=== PATIENT | male | born 1950 | race Caucasian/White ===

== ENCOUNTER 2016-10-20 14:54 | Emergency (ER) | payer OTHER, MEDICARE ==
[2016-10-20] MEDS ORDERED: Aspirin Low Dose CHEW TAB* 81 MG PO ONE (15:01)
[2016-10-20] MEDS ORDERED: NS 0.9% 1000 ML* 1,000 ML IV ONE (15:01)
[2016-10-20 15:19] LABS: Hematocrit 43 % (42-52); Hemoglobin 14.2 g/dl (14.0-18.0); Mean Corpuscular HGB Conc 33 g/dl (31-36); Mean Corpuscular Hemoglobin 30 pg (27-31); Mean Corpuscular Volume 92 fL (80-94); Mean Platelet Volume 8 um3 (7.4-10.4); Red Blood Count 4.67 10^6/ul (4.0-5.4); Red Cell Distribution Width 15 % (10.5-15); White Blood Count 5.9 10^3/ul (3.5-10.8)
--- NOTE | 2016-10-20 15:26 | RAD ---
HISTORY: Chest pain, shortness of breath, CHF COMPARISONS: April 14, 2016 VIEWS:1: Single frontal portable view of the chest at 3:09 PM FINDINGS: LINES AND TUBES: None. CARDIOMEDIASTINAL SILHOUETTE: The cardiomediastinal silhouette is normal for portable technique. PLEURA: The costophrenic angles are sharp. No pleural abnormalities are noted. LUNG PARENCHYMA: The lungs are clear. ABDOMEN: The upper abdomen is clear. There is no subphrenic gas. BONES AND SOFT TISSUES: The patient is status post median sternotomy. IMPRESSION: NO ACTIVE CARDIOPULMONARY DISEASE.
[2016-10-20 15:35] LABS: Albumin 3.9 g/dL (3.2-5.2); Calcium 9.1 mg/dL (8.6-10.3); EGFR African American 110.3 (>60); EGFR Non-African American 85.8 (>60); Globulin 2.6 g/dL (2-4); Potassium 3.8 mmol/L (3.5-5.0); Total Bilirubin 0.6 mg/dL (0.2-1.0); Total Protein 6.5 g/dL (6.4-8.9)
[2016-10-20] MEDS ORDERED: Midazolam* 1 MG/ML 5 ML VIAL (5 MG) ONE (15:52)
[2016-10-20] MEDS ORDERED: fentaNYL* 50 MCG/ML 2 ML VIAL (100 MCG VIAL) ONE ×2 (15:52→16:35)
[2016-10-20] MEDS ORDERED: Lidocaine 1% INJ* 10 MG/ML 30 ML SDV ONE (15:53)
[2016-10-20] MEDS ORDERED: Iohexol 350 (CONTRAST) 200 ML MDV IV ONE (15:53)
[2016-10-20] MEDS ORDERED: Heparin 2 UNITS/ML IVPREMIX* 2,000 ML IV ONE (15:53)
--- NOTE | 2016-10-20 20:27 | ED ---
Ganesh Ellis Alok, scribed for Reece Heath MD on 10/20/16 at 1509 . HPI Chest Pain - HPI Summary HPI Summary: 66M presents to the ED sent here from his [facility] for a sudden onset of CP accompanied by SOB during his stress test at 1300. Pt also notes diaphoresis and nausea. Pt states his SOB has improved somewhat since his stress test but still feels a mild chest discomfort. PMHx includes cardiac stent. Additional PMHx includes STEMI 17 years ago. Pt is a former tobacco smoker. - History of Current Complaint Hx Obtained From: Patient Onset/Duration: Started Hours Ago, Atraumatic, Still Present Time of Onset: 13:00 Timing: Constant Initial Severity: Moderate Current Severity: Moderate Aggravating Factor(s): Exertion Alleviating Factor(s): Nothing Associated Signs and Symptoms: Positive: Chest Pain, Dizziness, Shortness of Breath, Diaphoresis, Nausea - Allergy/Home Medications Allergies/Adverse Reactions: Allergies Allergy/AdvReac Type Severity Reaction Status Date / Time Penicillins Allergy Severe Unknown Verified 01/09/16 12:18 Reaction Details Sulfa Drugs Allergy Severe Unknown Verified 01/09/16 12:18 Reaction Details Atorvastatin Allergy MUSCLE Verified 01/09/16 12:18 REACTION - SEE COMMENT PMH/Surg Hx/FS Hx/Imm Hx Endocrine/Hematology History: Reports: Hx Diabetes - ON ORAL MEDICATION AND INSULIN Denies: Hx Thyroid Disease Cardiovascular History: Reports: Hx Angina - AT TIMES, Hx Coronary Artery Disease - HISTORY OF BYPASS-1998 DONE AFTER 2 ANGIOGRAMS, Hx Hypercholesterolemia, Hx Hypertension - ON MEDICATION FOR, Hx Valvular Heart Disease - AORTIC VALVE DISORDER, ISCHEMIC CARDIOMYOPATHY Denies: Hx Congestive Heart Failure, Hx Pacemaker/ICD, Hx Peripheral Vascular Disease Respiratory History: Reports: Hx Asthma - ROUTINE AND PRN INHALERS, Hx Chronic Bronchitis, Hx Seasonal Allergies, Hx Sleep Apnea - cpap Denies: Hx Chronic Obstructive Pulmonary Disease (COPD) GI History: Reports: Hx Diverticulosis, Hx Gastroesophageal Reflux Disease - ON MEDICATION FOR, Hx Irritable Bowel, Hx Ulcer - AROUND AGE 19 Musculoskeletal History: Reports: Hx Arthritis - tennis elbow Denies: Hx Osteoporosis Sensory History: Reports: Hx Contacts or Glasses - GLASSES Denies: Hx Cataracts, Hx Glaucoma, Hx Deafness, Hx Hearing Aid Opthamlomology History: Reports: Hx Contacts or Glasses - GLASSES Denies: Hx Cataracts, Hx Glaucoma Neurological History: Reports: Hx Migraine - CONTROL WITH MED, Hx Nerve Disease - DIABETIC NEUROPATHY, POST PUMP SYNDROME, Other Neuro Impairments/Disorders - DIABETIC NEUROPATHY Denies: Hx Headaches Psychiatric History: Reports: Hx Anxiety - ON MEDICATION FOR, Hx Depression, Hx Substance Abuse - Surgical History Surgery Procedure, Year, and Place: 1995-discectomy AND FUSION. TRIPLE BYPASS- 1998. tonsils REMOVED A CHILD. hemorrhoids-20 + YEARS AGO Hx Anesthesia Reactions: No Infectious Disease History: Reports: Hx Shingles - 2007 Denies: Hx Clostridium Difficile, Hx Hepatitis, Hx Human Immunodeficiency Virus (HIV), Hx of Known/Suspected MRSA, Hx Tuberculosis, Hx Known/Suspected VRE , Hx Known/Suspected VRSA, History Other Infectious Disease, Traveled Outside the [place] in Last 30 Days - Family History Known Family History: Positive: Cardiac Disease - Social History Lives: With Family Alcohol Use: Weekly Alcohol Amount: WEEKENDS Hx Substance Use: No Substance Use Type: Reports: None Hx Tobacco Use: Yes Smoking Status (MU): Former Smoker Type: Cigarettes Amount Used/How Often: 1/2- 2 PPD X 33 YEARS Length of Time of Smoking/Using Tobacco: 32 YEARS Have You Smoked in the Last Year: No Review of Systems Positive: Skin Diaphoresis Positive: Chest Pain Positive: Shortness Of Breath Positive: Nausea Neurological: Other - Dizziness All Other Systems Reviewed And Are Negative: Yes Physical Exam - Summary Physical Exam Summary: The patient is well-nourished in mild pain distress. The skin is warm and slightly diaphoretic and skin color reflects adequate perfusion. HEENT: The head is normocephalic and atraumatic. The pupils are equal and reactive. The conjunctivae are clear and without drainage. Nares are patent and without drainage. Mouth reveals moist mucous membranes and the throat is without erythema and exudate. The external ears are intact. The ear canals are patent and without drainage. The tympanic membranes are intact. Neck is supple with full range of motion and non-tender. There are no carotid bruits. There is no neck vein distension. Respiratory: Chest is non-tender. Lungs are clear to auscultation and breath sounds are symmetrical and equal. Cardiovascular: Hear is regular rate and rhythm. There is no murmur or rub auscultated. There is a pitting edema pretibial area of the lower extremities and pulses are symmetrical and equal. Abdomen: The abdomen is obese, soft, and non-tender. There are normal bowel sounds heard in all four quadrants and there is no organomegaly palpated. Musculoskeletal: There is no back pain noted. Extremities are non-tender with full range of motion. There is good capillary refill. Pitting edema pretibial area of the lower extremities. Neurological: Patient is alert and oriented to person, place and time. The patient has symmetrical motor strength in all four extremities. Cranial nerves are grossly intact. Deep tendon reflexes are symmetrical and equal in all four extremities. Psychiatric: The patient has an appropriate affect and does not exhibit any anxiety or depression. Triage Information Reviewed: Yes Vital Signs On Initial Exam: Initial Vital Signs Pulse 89 10/20/16 15:02 Resp 11 10/20/16 15:02 Pulse Ox 96 10/20/16 15:02 Vital Signs Reviewed: Yes Diagnostics - Vital Signs Vital Signs Pulse Resp Pulse Ox 10/20/16 15:24 94 10/20/16 15:02 89 11 96 - Laboratory Lab Results: Lab Results 10/20/16 10/20/16 10/20/16 Range/Units 15:10 15:10 15:10 WBC 5.9 (3.5-10.8) 10^3/ul RBC 4.67 (4.0-5.4) 10^6/ul Hgb 14.2 (14.0-18.0) g/dl Hct 43 (42-52) % MCV 92 (80-94) fL MCH 30 (27-31) pg MCHC 33 (31-36) g/dl RDW 15 (10.5-15) % Plt Count 240 (150-450) 10^3/ul MPV 8 (7.4-10.4) um3 Neut % (Auto) 64.4 (38-83) % Lymph % (Auto) 20.4 L (25-47) % [place] % (Auto) 11.0 H (1-9) % Eos % (Auto) 3.4 (0-6) % Baso % (Auto) 0.8 (0-2) % Absolute Neuts (auto) 3.8 (1.5-7.7) 10^3/ul Absolute Lymphs (auto) 1.2 (1.0-4.8) 10^3/ul Absolute Monos (auto) 0.7 (0-0.8) 10^3/ul Absolute Eos (auto) 0.2 (0-0.6) 10^3/ul Absolute Basos (auto) 0 (0-0.2) 10^3/ul Absolute Nucleated RBC 0.01 10^3/ul Nucleated RBC % 0.1 Sodium 139 (133-145) mmol/L Potassium 3.8 (3.5-5.0) mmol/L Chloride 106 (101-111) mmol/L Carbon Dioxide 25 (22-32) mmol/L Anion Gap 8 (2-11) mmol/L BUN 16 (6-24) mg/dL Creatinine 0.89 (0.67-1.17) mg/dL Est GFR ( Amer) 110.3 (>60) Est GFR (Non-Af Amer) 85.8 (>60) BUN/Creatinine Ratio 18.0 (8-20) Glucose 85 (70-100) mg/dL Lactic Acid 2.7 H* (0.5-2.0) mmol/L Calcium 9.1 (8.6-10.3) mg/dL Total Bilirubin 0.60 (0.2-1.0) mg/dL AST 22 (13-39) U/L ALT 19 (7-52) U/L Alkaline Phosphatase 61 (34-104) U/L Total Creatine Kinase 96 (10-223) U/L CK-MB (CK-2) 3.0 (0.6-6.3) ng/mL Troponin I 0.00 (<0.04) ng/mL B-Natriuretic Peptide ( - 100) pg/mL Total Protein 6.5 (6.4-8.9) g/dL Albumin 3.9 (3.2-5.2) g/dL Globulin 2.6 (2-4) g/dL Albumin/Globulin Ratio 1.5 (1-3) 10/20/16 Range/Units 15:10 WBC (3.5-10.8) 10^3/ul RBC (4.0-5.4) 10^6/ul Hgb (14.0-18.0) g/dl Hct (42-52) % MCV (80-94) fL MCH (27-31) pg MCHC (31-36) g/dl RDW (10.5-15) % Plt Count (150-450) 10^3/ul MPV (7.4-10.4) um3 Neut % (Auto) (38-83) % Lymph % (Auto) (25-47) % [place] % (Auto) (1-9) % Eos % (Auto) (0-6) % Baso % (Auto) (0-2) % Absolute Neuts (auto) (1.5-7.7) 10^3/ul Absolute Lymphs (auto) (1.0-4.8) 10^3/ul Absolute Monos (auto) (0-0.8) 10^3/ul Absolute Eos (auto) (0-0.6) 10^3/ul Absolute Basos (auto) (0-0.2) 10^3/ul Absolute Nucleated RBC 10^3/ul Nucleated RBC % Sodium (133-145) mmol/L Potassium (3.5-5.0) mmol/L Chloride (101-111) mmol/L Carbon Dioxide (22-32) mmol/L Anion Gap (2-11) mmol/L BUN (6-24) mg/dL Creatinine (0.67-1.17) mg/dL Est GFR ( Amer) (>60) Est GFR (Non-Af Amer) (>60) BUN/Creatinine Ratio (8-20) Glucose (70-100) mg/dL Lactic Acid (0.5-2.0) mmol/L Calcium (8.6-10.3) mg/dL Total Bilirubin (0.2-1.0) mg/dL AST (13-39) U/L ALT (7-52) U/L Alkaline Phosphatase (34-104) U/L Total Creatine Kinase (10-223) U/L CK-MB (CK-2) (0.6-6.3) ng/mL Troponin I (<0.04) ng/mL B-Natriuretic Peptide 26 ( - 100) pg/mL Total Protein (6.4-8.9) g/dL Albumin (3.2-5.2) g/dL Globulin (2-4) g/dL Albumin/Globulin Ratio (1-3) Result Diagrams: 10/20/16 15:10 10/20/16 15:10 Lab Statement: Any lab studies that have been ordered have been reviewed, and results considered in the medical decision making process. - Radiology CXR Xray Interpretation: Positive (See Comments) - IMPRESSION: NO ACTIVE CARDIOPULMONARY DISEASE. Radiology Interpretation Completed By: Radiologist - EKG 1455 Cardiac Rate: NL - 90 bpm EKG Rhythm: Sinus Rhythm EKG Interpretation: No ST depressions Chest Pain Course/Dx - Course Course Of Treatment: pt with known CAD with CABS and recent stent placement. pt developed chest pain while having a stress test with ST depression. his prehospital EKG x2 and ED EKG revealed no STEMI. Dr. Varghese was notified and he took pt to cardiac labor relations teacher for definitve care. - Chest Pain Differential Diagnosis/HQI/PQRI: Acute NC, ACS, CHF - Diagnoses Provider Diagnoses: Acute coronary syndrome - Provider Notifications Discussed Care Of Patient With: Anup Varghese - Will come see patient Time Discussed With Above Provider: 15:03 Discharge - Discharge Plan Condition: Stable Disposition: ADMITTED TO [facility] Referrals: Cecy Javier MD [Primary Care Provider] - The documentation as recorded by the Ganesh pires Alok accurately reflects the service I personally performed and the decisions made by , Reece Heath MD.
--- NOTE | 2016-10-21 05:56 | HP ---
CC: Evonne Mccracken MD HISTORY AND PHYSICAL: DATE OF ADMISSION: 10/20/16 PRIMARY CARE PHYSICIAN: Cecy Javier MD. SLASHER RUNNER: Evonne Mccracken MD HISTORY OF PRESENT ILLNESS: A 66-year-old male with remote bypass transferred by ambulance from ___ ___ office after stress echo produced fairly severe angina with an inferoapical wall motion abnormal ity. His symptoms have gradually improved, currently in the ER, he still has very minimal residual. He had bypass grafting in [place] in 1998 with a vein graft to the right, vein graft to a diagonal, and a DUNNE to the LAD. He only had neurological deficit post bypass. In March last year, he had a non-ST elevation infarct, cath at that time showed the LAD to be occluded with the patent DUNNE, v ein graft to the diagonal was occluded, the diagonal itself had proximal 40 to 50% stenosis. The na tive RCA was occluded with a patent vein graft, which was; however, diffusely and severely diseased with up to 90% stenosis. The circumflex proper was small, his PDA and posterolateral circulation we re graft dependent. He had inferior wall hypokinesis, EF was 40%. He was transferred to [place] where he had somewhat high risk vein graft intervention with placement of a distal filter, aspiratio n thrombectomy followed by implantation of four 4-mm stents using a 4 x 20, 4 x 38, 4 x 32, 4 x 12 S ynergy. They were all post dilated to 16 atmospheres. He initially then felt well, but at around F ebruary he started to have exertional dyspnea with chest tightness, which has gradually progressed. Because of the exertional dyspnea and chest heaviness, he had a stress echo today, which showed inf eroapical ischemia with prolonged residual angina. He recently had an elevated CPK and for that reason his Crestor was stopped. He has not had any ble eding on aspirin and Effient. His hemoglobin A1c has improved. PAST MEDICAL HISTORY: Diabetes type 2, obesity, hypertension, hyperlipidemia history of head trauma with apparently also neurologic deficit. CARDIAC MEDICATIONS: Include, 1. Toprol-XL 25 mg, 50 mg in the morning and 1 in the evening. 2. Norvasc 5 mg b.i.d. 3. Cozaar 25 mg daily. 4. Actos. 5. Insulin. 6. Effient 10 mg daily. 7. Aspirin 81 mg daily. ALLERGIES: 1. PENICILLIN. 2. SULFA. 3. LIPITOR. 4. Apparently CRESTOR. FAMILY HISTORY: Noncontributory. SOCIAL HISTORY: Social history he is . REVIEW OF SYSTEMS: FASHION MODEL: No history of CVA. GI: No peptic ulcer disease or bleeding. Circulatory : No claudication. Remainder all negative. Prehospital indications; list is extensive. PHYSICAL EXAMINATION GENERAL: He has very mild residual central chest pressure. VITAL SIGNS: ER heart rate was 90. HEENT: Unremarkable. NECK: JVP is not elevated. Carotid upstrokes are normal. LUNGS: LUNGS: Clear to percussion and auscultation. CARDIAC EXAM: He has a healed sternotomy scar, I cannot feel the RV or apex. He has normal S1 and S2. He has a typical calcific murmur, which peaks mid systole, diminished with Valsalva. I hear no gallop or diastolic murmur. ABDOMEN: Obese, nontender without bruit. Radial and femoral pulses are palpable. EXTREMITIES: Posterior tibialis are palpable, he has 1+ pitting edema bilaterally. LABORATORY DATA: CBC today is normal, chemistry panel today includes blood sugar of 85, lactate of 2.7, normal creatinine of 0.89, and potassium of 3.8. Troponin is 0. BNP is 26. His EKG today sh ows nonspecific ST changes inferolaterally, unchanged from 04/14/16. Chest x-ray normal heart size in a portable film, with perhaps slight vascular prominence, especially in the right upper lobe. Th ere is no previous chest x-ray for comparison. IMPRESSION: 1. Unstable angina. He has prolonged chest pain after stress echo with near complete resolution, b ut still residual mild discomfort. He likely has in-stent restenosis having had four 4-mm stents pl aced in the vein graft to the RCA in March. He has been symptomatic since around May. I saab ve recommended coronary angiogram and likely repeat revascularization with somewhat increased risk b ecause of concern of distal embolization. 2. Left ventricular systolic dysfunction. His ejection fraction in March was 40%. He is only C ozaar, low dose. There is room to increase afterload reduction. Last echo in March showed aortic valve sclerosis without significant stenosis. Echo in April of this year showed aortic valve area of 1.1 to 1.2. EF 55 to 60. 3. Dyslipidemia with apparent intolerance of statins. 4. Diabetes. 5. Obesity. 6. Hypertension. 7. Cognitive impairment post bypass and apparently in part post closed head trauma. [id number]/[facility] #: [id number]
== END 2016-10-20 16:41 | disposition short-term general hospital (02) ==
LOC: ED 14:54
DX: R07.9 Chest pain, unspecified (principal); I24.9 Acute ischemic heart disease, unspecified; R42 Dizziness and giddiness; R06.02 Shortness of breath; R11.0 Nausea; Z87.891 Personal history of nicotine dependence
CPT/HCPCS: 36415; 71010; 80053; 82550; 82553; 83605; 83880; 84484; 85025; 93005; 99284; J1644; J2001; J2250; J3010

== ENCOUNTER 2016-10-20 17:26 | Observation (INO) | payer OTHER, MEDICARE ==
[2016-10-20] MEDS ORDERED: NS 0.9% 1000 ML* 1,000 ML IV SCH (18:15)
[2016-10-21] MEDS ORDERED: amLODIPine TAB* 5 MG PO SCH ×2 (01:00→09:00)
[2016-10-21] MEDS ORDERED: Metoprolol Succinate XL TAB* 25 MG PO SCH (01:00)
[2016-10-21] MEDS ORDERED: Cholecalciferol TAB* 1000 UNITS PO SCH (01:00)
[2016-10-21] MEDS ORDERED: Pioglitazone TAB* 15 MG PO SCH ×2 (01:00→09:00)
[2016-10-21] MEDS ORDERED: Insulin GLARGINE(*) 1 UNITS UNIT SUBCUT SCH (01:00)
[2016-10-21] MEDS: Magnesium Oxide TAB* 400 MG PO SCH ×2 (01:30→08:25)
[2016-10-21] MEDS: metFORMIN* 1,000 MG TAB PO SCH ×2 (01:31→08:25)
[2016-10-21] MEDS: Pregabalin CAP(*) 100 MG PO SCH ×2 (01:32→08:25)
[2016-10-21] MEDS: Mometasone/Formoter 200/5 MDI INH SCH ×2 (04:31→09:00)
[2016-10-21 08:21] VITALS: BP 127/68
[2016-10-21] MEDS ORDERED: Nitroglycerin TAB 0.4 MG* 0.4 MG TAB SL PRN (08:54)
[2016-10-21] MEDS ORDERED: Metoprolol Succinate XL TAB* 50 MG PO SCH (09:00)
[2016-10-21] MEDS ORDERED: CMC:Prasugrel (NF) 10 MG PO SCH (09:00)
[2016-10-21] MEDS ORDERED: Repaglinide TAB* 1 MG PO SCH (09:00)
[2016-10-21] MEDS ORDERED: Furosemide TAB* 20 MG PO SCH (09:00)
[2016-10-21] MEDS ORDERED: Tiotropium CAP.INH* CAP.INH/18 MCG INH SCH (09:00)
[2016-10-21] MEDS ORDERED: Lisinopril TAB* 10 MG PO SCH (09:00)
[2016-10-21] MEDS ORDERED: Montelukast Sodium TAB* 10 MG PO SCH (09:00)
[2016-10-21] MEDS ORDERED: Pregabalin CAP(*) 100 MG PO SCH (09:00)
[2016-10-21] MEDS ORDERED: Aspirin EC Low Dose* 81 MG TAB.EC PO SCH (09:00)
[2016-10-21 09:28] LABS: BUN/Creatinine Ratio 12.6 (8-20); EGFR African American 113.3 (>60); EGFR Non-African American 88.1 (>60)
[2016-10-21] MEDS ORDERED: Spiriva Inhaler DEVICE* 1 EACH DEVICE INH ONE (10:00)
--- NOTE | 2016-10-22 12:00 | DS ---
CC: Cecy Javier MD; Evonne Mccracken MD.* DISCHARGE SUMMARY: DATE OF ADMISSION: 10/20/16 DATE OF DISCHARGE: 10/21/16 PRIMARY CARE PHYSICIAN: Cecy Javier MD. BABY SITTER: Evonne Mccracken MD. DISCHARGE DIAGNOSES: 1. Non cardiac chest pain. 2. Diastolic dysfunction with chronic diastolic heart failure. 3. Obesity. 4. Diabetes type 2. 5. Hypertension. 6. Dyslipidemia. CONDITION ON DISCHARGE: Stable. PROCEDURE: Cardiac cath 10/20/16. DISCHARGE MEDICATIONS: Unchanged: 1. Norvasc 5 mg b.i.d. 2. Aspirin 81 mg daily. 3. Vitamin D 1000 units daily. 4. Lantus 40 mg subcu h.s. 5. Magnesium oxide 400 b.i.d. 6. Glucophage 1 g b.i.d., on hold for 48 hours. 7. Toprol XL 25 mg at bedtime and 50 mg q. a.m. 8. Dulera inhaler as before. 9. Singulair 10 mg q. a.m. 10. Nitroglycerin 0.4 mg sublingual p.r.n. 11. Actos 45 mg daily. 12. Effient 10 mg daily. 13. Lyrica 300 mg b.i.d. 14. Prandin as before. 15. Spiriva as before. To discontinue Cozaar. New Medications: 1. Lasix 20 mg q.a.m. 2. Lisinopril 10 mg q.a.m. FOLLOWUP: Followup to call Dr. Mccracken's office next week for followup appointment and with Dr. Javier as before. LABORATORY DATA: Repeat BMP post cath, stable with creatinine of 0.87, glucose 133. Potassium normal at 4. HOSPITAL COURSE: He was referred for admission for diagnosis of progressive exertional dyspnea and stress echo accompanied by severe hypertension with severe dyspnea as well as precordial chest discomfort which was prolonged, but without EKG changes. He has had remote bypass, had four 4 mm stents implanted in the vein graft to the RCA last March. At that time, DUNNE was open to LAD. Vein graft to the first diagonal was occluded, but the diagonal itself had no significant stenosis. The RCA was occluded and graft dependent. He had inferior hyperkinesis at that time. Repeat echo in April showed normalization of EF and mild aortic stenosis. He underwent catheterization via the right femoral approach without complications, with the findings of widely patent vein graft to the RCA, and essentially unchanged the anatomy of the left circulation with a patent DUNNE to LAD, insignificant stenosis of the first diagonal. LV gram showed apical hypo to akinesis, but otherwise markedly improved inferior wall motion with normal EF of 55%. The right groin was closed with Angio-Seal. He has been discharged this morning after rearrangement of his medical management, which consisted of discontinuation of Cozaar, institution of lisinopril with the intent of titrating upward as needed to control his effort related hypertension and institution of Lasix 20 daily to reduce preload to help treat his diastolic dysfunction. 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 On the day of discharge, the vitals are stable, he is asymptomatic, the groin site is uncomplicated. [id number]/[facility] #: [id number] COLIN
--- NOTE | 2016-11-01 10:26 | CATH ---
CC: Dr. Javier; Dr. Mccracken * CATH REPORT: DATE OF PROCEDURE: 10/20/16 - ROOM #[id number] PRIMARY CARE PHYSICIAN: Dr. Javier. SENIOR SEARCH MARKETING ANALYST: Dr. Mccracken. PROCEDURE: Right common femoral artery access, bilateral selective coronary cine angiography, DUNNE angiography, vein graft angiography, left heart catheterization, left ventriculography. HISTORY: A 66-year-old male with remote bypass grafting in 1998. Cath, , revealed the LAD to be occluded with an open DUNNE, mild disease of the first diagonal with an occluded vein graft, occlusion of the [place] right with extensive degenerative disease of the vein graft. The RCA was graft dependent. EF was 40% with inferior wall hypokinesis. He received 4 drug-eluting stents at [facility] using a 4 x 20, 4 x 38, 4 x 32 and 4 x 12. He was referred for catheterization because of stress echo for dyspnea on exertion which was accompanied by hypertension, and reproduction of chest discomfort. He was suspected of having in-stent stenosis of the vein graft to the RCA stents. PROCEDURE ACCESS: Right common femoral artery. SHEATH: A 6F slender. MEDICATIONS: 1. Subcu lidocaine. 2. IV Versed. 3. IV fentanyl. DIAGNOSTIC CATHETERS: A 6F L4, MP A1, 6F SHANTE, 6F pigtail. Angio-Seal was used for hemostasis. HEMODYNAMICS: Initial BP 146/76, LV 128/9, no aortic valve gradient on pullback. ANGIOGRAPHY: Right common femoral: Sheath entry is in segment 2, there is no stenosis. DUNNE: The SHANTE is moderate, inserts into the mid LAD. The LAD is graft dependent. It fills towards the end of the apex, fills back to its retrograde occlusion adjacent to the septal automation and controls manager. The septal has an 80 to 90% ostial stenosis. There is a proximal small diagonal branch, which fills off the proximal LAD. The LAD and diagonal are graft dependent. RCA: The RCA is occluded at the origin. Left Main: The left main is short, has no significant stenosis. LAD: The LAD is moderate, has a very proximal first diagonal which has a 30% stenosis, has mid tenting at the side of presumably the old vein graft which is known to be occluded. The LAD beyond the diagonal is occluded. It fills from the DUNNE. Circumflex: The circumflex is small, not dominant, ends with a small posterolateral. Vein graft RCA: The graft is large, stented essentially from one end to the other, it inserts at the acute margin. The distal RCA with the PDA and the large posterolateral fill. There is no insertion stenosis. The graft has no significant stenosis. LV gram: Wall motion essentially normal. EF 55%. CONCLUSION: 1. Two-vessel disease with occlusion of the RCA and mid LAD, patent DUNNE to the LAD, patent vein graft to the RCA. He is revascularized. 2. Normal LV systolic function with probably diastolic dysfunction. Based on further history, some of his chest pain is probably due to chronic chest pain syndrome post bypass with pain from rapid breathing with exercise. He may have a component of diastolic dysfunction as well. 3. Successful Angio-Seal right common femoral artery. [id number]/[facility] #: [id number] MTDD
== END 2016-10-21 12:45 | disposition home or self-care (01) ==
LOC: MEDTELE 17:40
PROVIDERS: ADMIT Internal Medicine Cardiovascular Disease; ATTEND Internal Medicine Cardiovascular Disease
DX: I25.10 Atherosclerotic heart disease of native coronary artery without angina pectoris (principal); I25.2 Old myocardial infarction; Z79.82 Long term (current) use of aspirin; Z88.0 Allergy status to penicillin; Z88.2 Allergy status to sulfonamides; E11.9 Type 2 diabetes mellitus without complications; E78.5 Hyperlipidemia, unspecified; Z95.1 Presence of aortocoronary bypass graft; I10 Essential (primary) hypertension
CPT/HCPCS: 36415; 80048; 93459; 94640; 94760; A9270-GY; C1760; C1887; G0378

== ENCOUNTER 2017-05-22 12:58 | Day surgery (SDC) | payer OTHER, MEDICARE ==
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
[~2017-05-22 12:58] MED LIST: Buffered Lidocaine 0.9% SYRIN* 5 ML/SYR SYRINGE INTRADERM ONE; Metoclopramide TAB* 10 MG PO ONE
[2017-05-22] MEDS ORDERED: Metoclopramide TAB* 10 MG ONE (13:52)
[2017-05-22] MEDS ORDERED: Clindamycin 900 MG IVPREMIX(* 900 MG/50 ML SDV IV ONE (13:52)
[2017-05-22] MEDS ORDERED: Lidocaine 1% MPF wEPI 200,000* 30 ML SDV ONE (14:57)
[2017-05-22] MEDS ORDERED: Bupivacaine 0.5% SDV PF* 10-30ML VIAL ONE (14:58)
[2017-05-22] MEDS ORDERED: fentaNYL* 50 MCG/ML 2 ML VIAL (100 MCG VIAL) ONE (15:07)
[2017-05-22] MEDS ORDERED: Midazolam* 1 MG/ML 2 ML VIAL (2 MG) ONE ×2 (15:07→15:21)
[2017-05-22] MEDS ORDERED: Propofol* 10 MG/ML 20 ML BTL IV PUSH ONE (15:25)
[2017-05-22] MEDS ORDERED: Naloxone* 0.4 MG/ML 1 ML VIAL IV PRN (15:35)
[2017-05-22] MEDS ORDERED: oxyCODONE/Acetamin 5/325 MG* TAB PO PRN (16:12)
[2017-05-22] MEDS ORDERED: oxyCODONE/Acetamin 5/325 MG* TAB ONE (16:20)
[2017-05-22 16:52] VITALS: BP 129/78
--- NOTE | 2017-05-23 04:03 | OP ---
CC: Cecy Javier MD * DATE OF OPERATION: 05/22/17 - [facility] DATE OF : 52 SURGEON: Abhinav Wilkerson MD MECHANIC CHIEF: NICHOLAS Gray ANESTHESIOLOGIST: Dr. Ba. ANESTHESIA: Local MAC. PRE-OP DIAGNOSIS: Umbilical hernia. POST-OP DIAGNOSIS: Umbilical hernia. OPERATIVE PROCEDURE: Umbilical hernia repair with mesh. ESTIMATED BLOOD LOSS: Minimal blood loss. SPECIMEN: None. COUNTS: Lap pad count and instrument count correct at the end of the procedure. INDICATION: Mr. Worthy is a 66-year-old gentleman who I saw in my office last month with complaints of abdominal pain and back pain. At that time, he was diagnosed with an inguinal hernia as well as an umbilical hernia. We had plans for performing a laparoscopic inguinal hernia repair with mesh along with an umbilical hernia repair with likely mesh. However, on our preoperative visit, the patient did discuss that his upper abdominal pain, flank pain and back pain were worsening and he was concerned about the hernia in being a major player. It was at this time, I discussed with the patient that I felt this back pain was likely a different entity although it could have been secondary to the umbilical hernia, but much less likely secondary to the inguinal hernia. Given the patient's comorbidities, decision was made to perform more urgent umbilical hernia repair for this patient to see if this would help with his pain. The patient had stated that on multiple occasions, he was ready to go to the emergency room because of the pain. I outlined the details of the procedure going over the risks, benefits and alternatives of umbilical hernia repair with mesh and we talked about the inguinal hernia and its need for repair in an expected fashion without doing both of these at the same time given the patient' s significant discomfort. DESCRIPTION OF PROCEDURE: On the day of surgery, the patient was identified in the preoperative area, he was marked, brought to the OR, placed on the operating table in the supine position. Preoperative antibiotics were given. Sequential devices were placed on bilateral lower extremities. General sedation was given. The patient's abdomen was prepped and draped in a standard surgical fashion after the hair was clipped. A time-out was performed. An infra-umbilical incision was made. This was deepened down to the anterior fascia inferiorly. The umbilical skin was isolated on a Jon drain. After dissection, we then sharply dissected the umbilical skin off of the site identifying the hernia. The edges were cleared off and we identified a 2.5 cm hernia. With blunt and sharp dissection, we were able to form a pocket in the posterior fascia that would accomplish a 6.4 cm Ventralex mesh. We placed this in and sutured the tails of the mesh inferiorly and superiorly along the good fascia. We sutured the edges as well picking up the quadrants of the mesh and then reapproximated loosely the mid portion of the hernia defect. The wound was then irrigated. Hemostasis was excellent. We tacked the umbilical skin down with a 2-0 Vicryl suture and then closed the incision with 3-0 Vicryl subcuticular sutures followed by 4-0 Monocryl subcutaneous running suture. Steri-Strips and sterile dressing were applied. The patient tolerated the procedure well, was awoken up in the OR, and transferred to PACU in stable condition. [id number]/[facility] #: [id number] COLIN
== END 2017-05-22 16:55 | disposition home or self-care (01) ==
LOC: OR 12:58
PROVIDERS: ATTEND Surgery
DX: K42.9 Umbilical hernia without obstruction or gangrene (principal); K40.20 Bilateral inguinal hernia, without obstruction or gangrene, not specified as recurrent; Z87.891 Personal history of nicotine dependence; E11.9 Type 2 diabetes mellitus without complications; Z79.84 Long term (current) use of oral hypoglycemic drugs; M54.9 Dorsalgia, unspecified; I25.10 Atherosclerotic heart disease of native coronary artery without angina pectoris; Z95.1 Presence of aortocoronary bypass graft; I35.0 Nonrheumatic aortic (valve) stenosis; I10 Essential (primary) hypertension; E78.5 Hyperlipidemia, unspecified; I25.5 Ischemic cardiomyopathy; J45.909 Unspecified asthma, uncomplicated; F41.9 Anxiety disorder, unspecified; G47.30 Sleep apnea, unspecified; G62.9 Polyneuropathy, unspecified
CPT/HCPCS: A9270-GY; C1781; J2001; J2250; J2704; J3010

== ENCOUNTER 2017-09-07 16:00 | Emergency (ER) | payer OTHER, MEDICARE ==
--- OUTSIDE RECORDS SUMMARY | 2017-09-07 16:21 | XMS REPORT ---
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 Ratio 1.6 1-3 34 Total Bilirubin 0.90 mg/dL 0.2-1.0 34 Alkaline Phosphatase 64 U/L 34-104 34 Alt 19 U/L 7-52 34 Ast 16 U/L 13-39 34 Egfr Non- 75.2 >60 34 Egfr 96.7 >60 34, 35 Lipid Profile (Trig/Chol/HDL) 03/21/2016 Triglycerides 223 mg/dL 34, 36 Cholesterol 134 mg/dL 34, 37 HDL Cholesterol 35.8 mg/dL 34, 38 LDL Cholesterol 54 mg/dL 34, 39 Liver Function Panel 03/21/2016 Direct Bilirubin 0.10 mg/dL 0.03-0.18 34 Indirect Bilirubin 0.8 mg/dL 0.3-1.0 34 Urine Microalbumin Random 03/21/2016 Urine Creatinine 115.59 mg/dL 34 Ur Microalbumin (mg/L) 57.0 mg/L 34 Urine Microalbumin/Creatinine 49.3 ug/mg High <31 34 Laboratory test finding 01/07/2016 Point of Care Glucose 186 mg/dL High 74 -106 40 Laboratory test finding 10/29/2015 Point of Care Glucose 212 mg/dL High 74 -106 41 Laboratory test finding 10/27/2015 Ast (Sgot) 20 U/L 13-39 Basic Metabolic Panel 10/27/2015 Sodium 139 mmol/L 133-145 Potassium 3.7 mmol/L 3.5-5.0 Chloride 101 mmol/L 101-111 Co2 Carbon Dioxide 31 mmol/L 22-32 Anion Gap 7 mmol/L 2-11 Glucose 130 mg/dL High 70-100 Blood Urea Nitrogen 12 mg/dL 6-24 Creatinine 0.93 mg/dL 0.67-1.17 BUN/Creatinine Ratio 12.9 8-20 Calcium 8.8 mg/dL 8.6-10.3 Egfr Non- 81.8 >60 Egfr 105.2 >60 42 Lipid Profile (Trig/Chol/HDL) 10/27/2015 Triglycerides 145 mg/dL 43 Cholesterol 149 mg/dL 44 HDL Cholesterol 40.6 mg/dL 45 LDL Cholesterol 79 mg/dL 46 Testosterone Profile 06/08/2015 Testosterone 363 ng/dL 240-950 47 Free Testosterone ng/dl 10.5 ng/dL 3.67-13.9 48 Bioavailable Testosterone 123 ng/dL 40-168 49 Laboratory test finding 05/12/2014 TSH (Thyroid Stimulating 2.76 IU/mL 0.34-5.60 Horm) Testosterone 349.36 ng/dL 240-950 Liver Function Panel 05/12/2014 Direct Bilirubin 0.10 mg/dL 0.03-0.18 Indirect Bilirubin 0.5 mg/dL 0.3-1.0 Lipid Profile (Trig/Chol/HDL) 05/12/2014 Triglycerides 136 mg/dL 50 Cholesterol 125 mg/dL 51 HDL Cholesterol 40.1 mg/dL 52 LDL Cholesterol 58 mg/dL 53 CBC Auto Diff 05/12/2014 White Blood Count 5.2 10^3/uL 4.8-10.8 Red Blood Count 4.72 10^6/uL 4.0-5.4 Hemoglobin 15.5 g/dL 14.0-18.0 Hematocrit 46 % 42-52 Mean Corpuscular Volume 97 fL High 80-94 Mean Corpuscular Hemoglobin 33 pg High 27-31 Mean Corpuscular HGB Conc 34 g/dL 31-36 Red Cell Distribution Width 14 % 10.5-15 Platelet Count 191 10^3/uL 150-450 Mean Platelet Volume 8 um3 7.4-10.4 Abs Neutrophils 2.8 10^3/uL 1.5-7.7 Abs Lymphocytes 1.5 10^3/uL 1.0-4.8 Abs Monocytes 0.6 10^3/uL 0-0.8 Abs Eosinophils 0.2 10^3/uL 0-0.6 Abs Basophils 0 10^3/uL 0-0.2 Abs Nucleated RBC 0.01 10^3/uL Granulocyte % 54.6 % 38-83 Lymphocyte % 29.8 % 25-47 Monocyte % 11.3 % High 1-9 Eosinophil % 3.6 % 0-6 Basophil % 0.7 % 0-2 Nucleated Red Blood Cells % 0.1 Urine Microalbumin Random 05/12/2014 Ur Microalbumin (mg/L) 29.0 mg/L Urine Creatinine 123.58 mg/dL Urine Microalbumin/Creatinine 23.4 Less Than 31 Comp Metabolic Panel 05/12/2014 Sodium 138 mmol/L 133-145 Potassium 3.8 mmol/L 3.5-5.0 Chloride 101 mmol/L 101-111 Co2 Carbon Dioxide 32 mmol/L 22-32 Anion Gap 5 mmol/L 2-11 Glucose 145 mg/dL High 70-100 Blood Urea Nitrogen 12 mg/dL 6-24 Creatinine 1.02 mg/dL 0.67-1.17 BUN/Creatinine Ratio 11.8 8-20 Calcium 8.9 mg/dL 8.6-10.3 Total Protein 6.4 g/dL 6.4-8.9 Albumin 4.3 g/dL 3.2-5.2 Globulin 2.1 g/dL 2-4 Albumin/Globulin Ratio 2.0 1-3 Total Bilirubin 0.60 mg/dL 0.2-1.0 Alkaline Phosphatase 55 U/L 34-104 Alt 18 U/L 7-52 Ast 16 U/L 13-39 Egfr Non- 74.0 >60 Egfr 95.2 >60 54 1 Test Performed by: [place] [address] 2 Test Performed by: [place] [address] 3 Sales Service Rep: [id number] Desirable: <150 Borderline High: 150-199 High: 200-499 Very High: >500 6 Desirable: <200 Borderline High: 200-239 High: >239 7 Low: <40 Desirable: 40-60 High: >60 8 Desirable: <100 Near Optimal: 100-129 Borderline High: 130-159 High: 160-189 Very High: >189 9 Test Performed by: [address] [address] 10 Because ethnic data is not always readily available, this report includes an eGFR for both -Americans and non- Americans. The National Kidney Disease Education Program (NKDEP) does not endorse the use of the MDRD equation for patients that are not between the ages of 18 and 70, are , have extremes of body size, muscle mass, or nutritional status, or are non- or non-. According to the National Kidney Foundation, irrespective of diagnosis, the stage of the disease is based on the level of kidney function: Stage Description GFR(mL/min/1.73 m(2)) 1 Kidney damage with normal or decreased GFR 90 2 Kidney damage with mild decrease in GFR 60-89 3 Moderate decrease in GFR 30-59 4 Severe decrease in GFR 15-29 5 Kidney failure <15 (or dialysis) 11 Desirable <150 Borderline high 150-199 High 200-499 Very High >500 12 Desirable <200 Borderline high 200-239 High >239 13 Low <40 Desirable: 40-60 High: >60 14 Desirable: <100 mg/dL Near Optimal: 100-129 mg/dL Borderline High: 130-159 mg/dL High: 160-189 mg/dL Very High: >189 mg/dL 15 Fasting prior to starting Praluent and off of Crestor PT IS NOT FASTING 16 Desirable <150 Borderline high 150-199 High 200-499 Very High >500 17 Desirable <200 Borderline high 200-239 High >239 18 Low <40 Desirable: 40-60 High: >60 19 Desirable: <100 mg/dL Near Optimal: 100-129 mg/dL Borderline High: 130-159 mg/dL High: 160-189 mg/dL Very High: >189 mg/dL 20 non-fasting ok- in 1-2 weeks to reevaluate high CK level 21 Because ethnic data is not always readily available, this report includes an eGFR for both -Americans and non- Americans. The National Kidney Disease Education Program (NKDEP) does not endorse the use of the MDRD equation for patients that are not between the ages of 18 and 70, are , have extremes of body size, muscle mass, or nutritional status, or are non- or non-. According to the National Kidney Foundation, irrespective of diagnosis, the stage of the disease is based on the level of kidney function: Stage Description GFR(mL/min/1.73 m(2)) 1 Kidney damage with normal or decreased GFR 90 2 Kidney damage with mild decrease in GFR 60-89 3 Moderate decrease in GFR 30-59 4 Severe decrease in GFR 15-29 5 Kidney failure <15 (or dialysis) 22 Desirable <150 Borderline high 150-199 High 200-499 Very High >500 23 Desirable <200 Borderline high 200-239 High >239 24 Low <40 Desirable: 40-60 High: >60 25 Desirable: <100 mg/dL Near Optimal: 100-129 mg/dL Borderline High: 130-159 mg/dL High: 160-189 mg/dL Very High: >189 mg/dL 26 Because ethnic data is not always readily available, this report includes an eGFR for both -Americans and non- Americans. The National Kidney Disease Education Program (NKDEP) does not endorse the use of the MDRD equation for patients that are not between the ages of 18 and 70, are , have extremes of body size, muscle mass, or nutritional status, or are non- or non-. According to the National Kidney Foundation, irrespective of diagnosis, the stage of the disease is based on the level of kidney function: Stage Description GFR(mL/min/1.73 m(2)) 1 Kidney damage with normal or decreased GFR 90 2 Kidney damage with mild decrease in GFR 60-89 3 Moderate decrease in GFR 30-59 4 Severe decrease in GFR 15-29 5 Kidney failure <15 (or dialysis) 27 Sales Service Rep: [id number] EMELIA RABAGO 28 Desirable <150 Borderline high 150-199 High 200-499 Very High >500 29 Desirable <200 Borderline high 200-239 High >239 30 Low <40 Desirable: 40-60 High: >60 31 Desirable: <100 mg/dL Near Optimal: 100-129 mg/dL Borderline High: 130-159 mg/dL High: 160-189 mg/dL Very High: >189 mg/dL 32 SEE RESULT BELOW Name: JIM JOHNSON JR : [address]: Evonne Mccracken MD Acct: [id number] Unit: [id number] AGE: 65 Location: [facility] Re06/23/16 SEX: M Status: REG REF SPEC: [id number] TERESA: 06/23/[address] [facility] [address]: Evonne Mccracken MD REQ: [id number] RECD: 06/23/16 STATUS: JOSIE DR: Jae Ellison MD _ SOURCE: NASAL SPDESC: ORDERED: Flu A B Request COMMENTS: Copy Result to: JAE ELLISON ([id number]) Procedure Result Reported Site Rapid Influenza A B Request Final 06/23/16- 1148 ML Specimen received for Influenza A/B Molecular testing * ML - MAIN LAB ([facility]) . END OF REPORT * ML=Testing performed at Main Lab DEPARTMENT OF PATHOLOGY, [address] [place] [address] Jaycob Soto M.D. Director [facility] # [id number] 33 Low risk: <1.00 Average risk: 1.00-3.00 High risk: >3.00 34 [id number] 35 Because ethnic data is not always readily available, this report includes an eGFR for both -Americans and non- Americans. The National Kidney Disease Education Program (NKDEP) does not endorse the use of the MDRD equation for patients that are not between the ages of 18 and 70, are , have extremes of body size, muscle mass, or nutritional status, or are non- or non-. According to the National Kidney Foundation, irrespective of diagnosis, the stage of the disease is based on the level of kidney function: Stage Description GFR(mL/min/1.73 m(2)) 1 Kidney damage with normal or decreased GFR 90 2 Kidney damage with mild decrease in GFR 60-89 3 Moderate decrease in GFR 30-59 4 Severe decrease in GFR 15-29 5 Kidney failure <15 (or dialysis) 36 Desirable <150 Borderline high 150-199 High 200-499 Very High >500 37 Desirable <200 Borderline high 200-239 High >239 38 Low <40 Desirable: 40-60 High: >60 39 Desirable: <100 mg/dL Near Optimal: 100-129 mg/dL Borderline High: 130-159 mg/dL High: 160-189 mg/dL Very High: >189 mg/dL 40 Sales Service Rep: [id number] [place] ALDRICH 41 Sales Service Rep: [id number] SWE[place]Y 42 Because ethnic data is not always readily available, this report includes an eGFR for both -Americans and non- Americans. The National Kidney Disease Education Program (NKDEP) does not endorse the use of the MDRD equation for patients that are not between the ages of 18 and 70, are , have extremes of body size, muscle mass, or nutritional status, or are non- or non-. According to the National Kidney Foundation, irrespective of diagnosis, the stage of the disease is based on the level of kidney function: Stage Description GFR(mL/min/1.73 m(2)) 1 Kidney damage with normal or decreased GFR 90 2 Kidney damage with mild decrease in GFR 60-89 3 Moderate decrease in GFR 30-59 4 Severe decrease in GFR 15-29 5 Kidney failure <15 (or dialysis) 43 Desirable <150 Borderline high 150-199 High 200-499 Very High >500 44 Desirable <200 Borderline high 200-239 High >239 45 Low <40 Desirable: 40-60 High: >60 46 Desirable: <100 mg/dL Near Optimal: 100-129 mg/dL Borderline High: 130-159 mg/dL High: 160-189 mg/dL Very High: >189 mg/dL 47 ADDITIONAL INFORMATION Testing performed by Liquid Chromatography-Tandem Mass Spectrometry (LC-MS/MS). 48 ADDITIONAL INFORMATION Testing performed by Equilibrium Dialysis. 49 ADDITIONAL INFORMATION Testing performed by Differential Precipitation. Test Performed by: [facility] [place] [address] Acid Strength Inspector: Trevin Duke II, M.D., Ph.D. 50 Desirable <150 Borderline high 150-199 High 200-499 Very High >500 51 Desirable <200 Borderline high 200-239 High >239 52 Low <40 Desirable: 40-60 High: >60 53 Desirable <100 Near Optimal 100-129 Borderline high 130-159 High 160-189 Very High >189 54 Because ethnic data is not always readily available, this report includes an eGFR for both -Americans and non- Americans. The National Kidney Disease Education Program (NKDEP) does not endorse the use of the MDRD equation for patients that are not between the ages of 18 and 70, are , have extremes of body size, muscle mass, or nutritional status, or are non- or non-. According to the National Kidney Foundation, irrespective of diagnosis, the stage of the disease is based on the level of kidney function: Stage Description GFR(mL/min/1.73 m(2)) 1 Kidney damage with normal or decreased GFR 90 2 Kidney damage with mild decrease in GFR 60-89 3 Moderate decrease in GFR 30-59 4 Severe decrease in GFR 15-29 5 Kidney failure <15 (or dialysis) Procedures Date CPT Code Description Status 09/07/2017 96120 EKG Tracing & Interpretation Completed 07/20/2017 52680 Nerve Conduction 07-08 Studies Completed 05/22/2017 93060 Repair Hernia Umbilical > 5 Yrs, Reducible Completed 05/22/2017 92760 Repair Hernia Umbilical > 5 Yrs, Reducible Completed 05/22/2017 95678 Repair Hernia Umbilical > 5 Yrs, Reducible Completed 05/07/2017 85401 EKG Tracing & Interpretation Completed 11/09/2016 59586 EKG Tracing & Interpretation Completed 10/20/2016 68024 ECHO Stress Test Incl Perf Contiuous ekg Monitoring Completed W/Phys Superv 10/20/2016 78800 ECHO Stress Test Incl Perf Contiuous ekg Monitoring Completed W/Phys Superv 10/20/2016 04709 Cardiac Cath,LT Hrtmincl Intraprocedural Ink LT Completed Ventricul Mammary 06/22/2016 15903 EKG Tracing & Interpretation Completed 05/17/2016 95587 ECHO Transthoracic, Real-Time 2D With Doppler And Color Completed Flow 05/16/2016 89486 Stress Test Completed 04/27/2016 96186 EKG Tracing & Interpretation Completed 04/14/2016 12068 Cardiac Cath,LT Hrtmincl Intraprocedural Ink LT Completed Ventricul Mammary 01/07/2016 08713 Neuroplasty &/Or Transposition; Ulnar Nerve AT Completed Elbow 01/07/2016 26658 Neuroplasty &/Or Transposition; Ulnar Nerve AT Completed Elbow 12/30/2015 14969 EKG Tracing & Interpretation Completed 11/04/2015 02348 EKG Tracing & Interpretation Completed 10/29/2015 79875 Neuroplasty &/Or Transposition; Ulnar Nerve AT Completed Elbow 10/29/2015 46470 Neuroplasty &/Or Transposition; Ulnar Nerve AT Completed Elbow 10/19/2015 25426 ECHO Transthoracic, Real-Time 2D With Doppler And Color Completed Flow 10/15/2015 70261 Treadmill Interp/Report Only Completed 10/15/2015 53933 Stress Test Supervsn W/Out I/R Completed 10/12/2015 53509 EKG Tracing & Interpretation Completed 04/02/2015 97623 Nerve Conduction 07-08 Studies Completed 11/05/2014 23268 Carotid Doppler,Bilateral Completed 05/15/2014 19739 Myocardial Perfusion Imaging Tomographic (Spect) Completed Multiple Studies 05/15/2014 88138 Myocardial Perfusion Imaging Tomographic (Spect) Completed Multiple Studies 05/15/2014 29578 Stress Test Completed 04/13/2014 90054 ECHO Stress Test Incl Perf Contiuous ekg Monitoring Completed W/Phys Superv 03/31/2014 25554 EKG Tracing & Interpretation Completed 03/18/2014 63108 ECHO Transthoracic, Real-Time 2D With Doppler And Color Completed Flow 02/28/2013 42426 Nerve Conduction 07-08 Studies Completed 02/27/2013 10744 EKG Tracing & Interpretation Completed 02/22/2012 92586 EKG Tracing & Interpretation Completed 02/13/2012 20659 ECHO Transthoracic, Real-Time 2D With Doppler And Color Completed Flow Encounters Type Date Location Provider CPT E/M Dx Office Visit 09/07/2017 [facility] Jose Manuel Mccracken M.D. 83106 I25.729 2:40p Registry Nurse R07.9 R06.02 I35.0 R53.83 Office Visit 06/27/2017 2:30p [facility] Rao Reddy, 63885 E11.42 Services Of Allie Tejeda G56.03 Office Visit 05/07/2017 2:40p [facility] Jose Manuel Mccracken M.D. 49382 Z01.810 [facility] K40.90 K42.9 I25.810 E78.2 I10 Office Visit 04/09/2017 9:15a [facility] [place] [address] K40.90 Registry Nurse K42.9 Office Visit 01/12/2017 8:30a [facility] NICHOLAS Stephenson 47148 I25.810 R07.9 R06.02 E78.2 I10 Office Visit 11/09/2016 3:30p [facility] Jose Manuel Mccracken M.D. 52608 R07.89 [facility] I10 I50.32 I25.2 Office Visit 10/25/2016 1:30p [facility] Rao Reddy, 56284 E11.42 Services Of Allie Tejeda Office Visit 10/21/2016 1:36p [facility] Of Anup Varghese, 53451 R07.9 [facility] [place] [facility] [place] FSCAI I50.32 Office Visit 10/20/2016 9:12a [facility] Of Anup Varghese, 47891 I20.0 [facility] [place] [facility] [place], FACC, FSCAI Office Visit 09/14/2016 8:15a [facility] Of NICHOLAS Stephenson 18048 I10 [facility] E78.2 I25.810 R07.9 I25.2 Office Visit 08/09/2016 8:30a [facility] NICHOLAS Stephenson 69785 I10 E78.2 I25.810 Office Visit 06/22/2016 3:15p [facility] Of Evonne Mccracken M.D. 35152 E78.2 [facility] I10 I25.810 Z68.32 J20.9 R07.9 Office Visit 05/31/2016 8:30a [facility] NICHOLAS Stephenson 90652 I10 R07.89 I25.10 I25.5 Office Visit 05/23/2016 9:00a [facility] Rao Reddy, 07626 G56.23 [place] E11.42 Office Visit 05/03/2016 8:00a [facility] Denisse Morrissey, 96670 G56.22 Of Santiago Tejeda G56.21 G56.23 Office Visit 04/27/2016 2:30p [facility] Of Evonne Mccracken M.D. 09925 I25.5 [facility] I25.10 E78.2 I10 I35.0 Office Visit 04/14/2016 3:13p [facility] [place] [place] [address] I21.4 [facility] I25.810 Z95.1 Office Visit 04/14/2016 8:53a [facility],cindy Biggs, 33038 I25.110 Hospitalists Nikhil E11.9 Z79.4 Office Visit 12/30/2015 3:15p [facility] Of Evonne Mccracken M.D. 06374 Z01.810 [facility] I25.810 G56.22 E11.8 I10 E78.2 I35.0 Office Visit 11/16/2015 8:30a [facility] Rao Reddy, 93613 E11.42 Services Of Allie Tejeda G56.22 Office Visit 11/15/2015 3:30p [facility] NICHOLAS Stephenson 63121 R94.30 I25.119 I10 Office Visit 11/04/2015 1:30p [facility] Of Evonne Mccracken M.D. 92030 I25.719 [facility] R07.9 R06.02 I10 E78.2 I35.0 Office Visit 10/28/2015 2:00p [facility] NICHOLAS Stephenson 67753 I25.119 I10 R06.02 I35.0 R94.30 Office Visit 10/12/2015 8:30a [facility] Of Evonne Mccracken M.D. 56016 I25.119 [facility] R06.02 E78.2 I10 E11.8 Z68.32 I35.0 Office Visit 09/30/2015 8:30a [facility] Dneisse Morrissey, 57525 G56.21 Of Santiago Tejeda G56.22 Office Visit 07/20/2015 8:30a [facility] Rao Reddy, 32676 G56.21 Services Of Allie Tejeda G56.22 E11.42 Office Visit 01/12/2015 8:30a [facility] Rao Reddy, 25721 E11.42 Services Of Allie Tejeda G31.84 Office Visit 10/30/2014 8:30a [facility] Of Evonne Mccracken M.D. 18009 414.02 [facility] 272.2 401.1 782.3 785.9 Office Visit 06/30/2014 9:45a [facility] Rao Reddy, 39849 250.60 Services Of Allie Tejeda 357.2 Office Visit 05/20/2014 9:00a [facility] NICHOLAS Stephenson 05954 401.1 424.1 493.90 272.2 414.02 250.60 Office Visit 04/29/2014 9:00a [facility] NICHOLAS Stephenson 83125 424.1 401.1 786.09 272.2 493.90 Office Visit 03/31/2014 9:45a [facility] Evonne Mccracken M.D. 24599 424.1 Allie 414.02 786.50 786.09 401.1 Office Visit 12/31/2013 9:45a [facility] Rao Reddy, 65840 354.2 Services Of Allie Tejeda 250.60 357.2 Office Visit 04/30/2013 10:23a [facility], Veronica Vazquez, 34931 481 Hospitalists D.O. 995.91 493.90 250.00 Office Visit 04/29/2013 10:23a [facility], Veronica Vazquez, 30902 481 Hospitalists D.O. 995.91 493.90 250.00 Office Visit 04/28/2013 10:23a [facility], Veronica Vazquez, 06601 481 Hospitalists D.O. 995.91 493.90 250.00 Office Visit 04/27/2013 10:22a [facility], Veronicakatherine Patelr, 56090 481 Hospitalists D.O. 995.91 493.90 250.00 Office Visit 02/27/2013 9:00a [facility] Jose Manuel Mccracken M.D. 56820 414.02 [facility] 250.60 401.9 272.2 278.01 327.23 424.1 Office Visit 01/01/2013 9:45a [facility] Rao Reddy 80467 250.60 Services Of Allie Tejeda 357.2 354.0 Office Visit 02/22/2012 8:45a [facility] Jose Manuel Mccracken M.D. 58818 414.02 Registry Nurse 786.50 401.9 Office Visit 01/03/2012 9:45a [facility] Rao Reddy 82510 250.60 Services Of Allie Tejeda 357.2 Plan of Care Future Appointment(s):12/06/2017 10:00 am - Abhinav Wilkerson MD at [facility]01/08/2018 8:30 am - Rao Reddy M.D. at [facility]09/07/2017 - Evonne Mccracken M.D.I25.729 Athscl autologous artery CABG w unsp angina pectorisComments:ECG is stable.Follow up: Follow up with me in September. Fax to ED now: ECG, stat todays noted, my last note , thanks,R07.9 Chest pain, unspecifiedNew Labs:Troponin-I (TnI)Creatine Kinase( CK)Erythrocyte Sed RateComments:It seems "atypical" for angina and your cath last year reasurring.We can check a stress test, but weknow you will have ECG changes on this based on the last one. There is large "differential" for thisincluding chest wall, pericardial, esophogous, lungs, stomach and more.Follow up:After discussion the patient is going to the ED.R06.02 Shortness of nrmrvhU85.0 Nonrheumatic aortic (valve) stenosisNew Orders: UcbtvjaxbxqzktD67.83 Other fatigue
[2017-09-07 19:34] LABS: Hematocrit 42 % (42-52); Hemoglobin 14.2 g/dl (14.0-18.0); Mean Corpuscular HGB Conc 34 g/dl (31-36); Mean Corpuscular Hemoglobin 29 pg (27-31); Mean Corpuscular Volume 85 fL (80-94); Mean Platelet Volume 7.5 um3 (7.4-10.4); Platelet Count 232 10^3/ul (150-450); Red Blood Count 4.94 10^6/ul (4.0-5.4); Red Cell Distribution Width 15 % (10.5-15); White Blood Count 6.4 10^3/ul (3.5-10.8)
[2017-09-07 19:40] LABS: INR 0.89 (0.77-1.02)
--- NOTE | 2017-09-07 19:41 | RAD ---
INDICATION: Chest pain COMPARISON: October 20, 2016 TECHNIQUE: An AP portable view obtained at 1921 hours is submitted. FINDINGS: Bones/Soft Tissues: There are no acute bony findings. There is sternotomy Cardiomediastinal: The cardiac silhouette is mildly enlarged. Lungs: There are no infiltrates. Pleura: There are no pleural effusions. Other: None IMPRESSION: MILD ENLARGED CARDIAC SILHOUETTE. LUNGS CLEAR.
[2017-09-07] MEDS ORDERED: Morphine VIAL* 4 MG/ML VIAL (1 ml vial) IV ONE ×2 (19:45→21:12)
[2017-09-07 19:57] LABS: EGFR Non-African American 78.6 (>60)
[2017-09-07] MEDS ORDERED: Ketorolac INJ* 30 MG/ML 1 ML VIAL IV PUSH ONE (22:14)
[2017-09-08 01:14] VITALS: BP 134/71
--- NOTE | 2017-09-09 19:41 | ED ---
Samaria Ellis Emily, scribed for Samir Choi MD on 09/07/17 at 1932 . HPI Chest Pain - HPI Summary HPI Summary: This patient is a 66 year old M referred [place] [facility]CP accompanied by with a chief complaint of squeezing, waxing and waning, mid-sternal CP that began at 1200. The patient rates the pain 2/10 in severity. Symptoms aggravated by deep breaths. Symptoms alleviated by nothing. Patient reports fatigue. Patient denies diaphoresis and SOB. Pt reports waking up at 0630 with no CP. Pt reports CP being a 9/10 at its worst, and lessened prior to his appointment with his PCP. Pt reports symptoms not being similar to previous TN symptoms. Pt has a history of TN (2 years ago), diabetes, and angina. - History of Current Complaint Chief Complaint: EDChestPainROMI Time Seen by Provider: 09/07/17 19:17 Hx Obtained From: Patient Onset/Duration: Started Hours Ago, Still Present Timing: Constant Initial Severity: Mild Current Severity: Mild Pain Intensity: 2 Pain Scale Used: 0-10 Numeric Chest Pain Location: Mid Sternal Chest Pain Radiates: No Character: Pressure/Squeezing Aggravating Factor(s): Deep Breaths Alleviating Factor(s): Nothing Associated Signs and Symptoms: Positive: Other: - Positive fatigue. Negative SOB and diaphoresis - Allergy/Home Medications Allergies/Adverse Reactions: Allergies Allergy/AdvReac Type Severity Reaction Status Date / Time atorvastatin Allergy See Comment Verified 09/07/17 16:07 Penicillins Allergy Unknown Verified 09/07/17 16:07 Reaction Details rosuvastatin [From Crestor] Allergy See Comment Verified 09/07/17 16:07 Sulfa (Sulfonamide Allergy Unknown Verified 09/07/17 16:07 Antibiotics) Reaction Details Home Medications: Home Medications Acetaminophen [Tylenol Extra Strength] 1,000 mg PO Q8H PRN 09/07/17 [History Confirmed 09/07/17] Albuterol HFA INHALER* [Ventolin HFA Inhaler*] 2 puff INH Q4H PRN 09/07/17 [ History Confirmed 09/07/17] Cyanocobalamin TAB* [Vitamin B12 TAB*] 1,000 mcg PO DAILY 09/07/17 [History Confirmed 09/07/17] Cyclosporine 0.05% OPHTH (NF) [Restasis 0.05% OPHTH] 1 drop BOTH EYES BID [History Confirmed 09/07/17] Desloratidine (NF) [Clarinex (NF)] 5 mg PO QPM 09/07/17 [History Confirmed 09/07] Docusate CAP* [Colace Cap*] 100 mg PO BID PRN 09/07/17 [History Confirmed ] Exenatide VIAL (NF) [Bydureon (NF)] 2 mg SUBCUT WEEKLY 09/07/17 [History Confirmed 09/07/17] Insulin GLARGINE(*) [Lantus(*)] 60 units SUBCUT BEDTIME 09/07/17 [History Confirmed 09/07/17] Lactase Enzyme (NF) [Lactase Enzyme] 5 mg PO DAILY PRN 09/07/17 [History Confirmed 09/07/17] metFORMIN* [Glucophage 1000 MG TAB *] 1,000 mg PO BID 09/07/17 [History Confirmed 09/07/17] PMH/Surg Hx/FS Hx/Imm Hx Previously Healthy: No Endocrine/Hematology History: Reports: Hx Diabetes - ON ORAL MEDICATION AND INSULIN Denies: Hx Thyroid Disease Cardiovascular History: Reports: Hx Angina - AT TIMES, Hx Cardiomegaly, Hx Coronary Artery Disease - HISTORY OF BYPASS-1998 DONE AFTER 2 ANGIOGRAMS, Hx Hypercholesterolemia, Hx Hypertension - ON MEDICATION FOR, Hx Valvular Heart Disease - AORTIC VALVE DISORDER, ISCHEMIC CARDIOMYOPATHY Denies: Hx Congestive Heart Failure, Hx Pacemaker/ICD, Hx Peripheral Vascular Disease, Other Cardiovascular Problems/Disorders Respiratory History: Reports: Hx Asthma - ROUTINE AND PRN INHALERS, Hx Chronic Bronchitis, Hx Seasonal Allergies, Hx Sleep Apnea - cpap Denies: Hx Chronic Obstructive Pulmonary Disease (COPD), Other Respiratory Problems/Disorders GI History: Reports: Hx Diverticulosis, Hx Gastroesophageal Reflux Disease - ON MEDICATION FOR, Hx Irritable Bowel, Hx Ulcer - AROUND AGE 19 History: Denies: Other Problems/Disorders Musculoskeletal History: Reports: Hx Arthritis - tennis elbow, Hx Bursitis - shoulder in the past Denies: Hx Osteoporosis, Other Musculoskeletal History Sensory History: Reports: Hx Contacts or Glasses Denies: Hx Cataracts, Hx Glaucoma, Hx Deafness, Hx Hearing Aid Opthamlomology History: Reports: Hx Contacts or Glasses Denies: Hx Cataracts, Hx Glaucoma Neurological History: Reports: Hx Migraine - CONTROL WITH MED, Hx Nerve Disease - DIABETIC NEUROPATHY, POST PUMP SYNDROME, Other Neuro Impairments/Disorders - DIABETIC NEUROPATHY Denies: Hx Headaches Psychiatric History: Reports: Hx Anxiety - ON MEDICATION FOR, Hx Depression, Hx Substance Abuse - Surgical History Surgery Procedure, Year, and Place: 1995-discectomy AND FUSION. TRIPLE BYPASS- 1998. tonsils REMOVED A CHILD. hemorrhoids-20 + YEARS AGO Hx Anesthesia Reactions: No Infectious Disease History: No Infectious Disease History: Reports: Hx Shingles - 2007 Denies: Hx Clostridium Difficile, Hx Hepatitis, Hx Human Immunodeficiency Virus (HIV), Hx of Known/Suspected MRSA, Hx Tuberculosis, Hx Known/Suspected VRE , Hx Known/Suspected VRSA, History Other Infectious Disease, Traveled Outside the [place] in Last 30 Days - Family History Known Family History: Positive: Cardiac Disease - Social History Occupation: Disabled Lives: With Family Alcohol Use: Rare Alcohol Amount: WEEKENDS Hx Substance Use: No Substance Use Type: Reports: None Hx Tobacco Use: Yes Smoking Status (MU): Former Smoker Type: Cigarettes Amount Used/How Often: 1/2- 2 PPD X 33 YEARS Length of Time of Smoking/Using Tobacco: 32 YEARS Have You Smoked in the Last Year: No Review of Systems Positive: Fatigue Positive: Chest Pain Negative: Shortness Of Breath Skin: Other - Negative diaphoresis All Other Systems Reviewed And Are Negative: Yes Physical Exam - Summary Physical Exam Summary: Appearance: Well-appearing, Well-nourished, lying in bed comfortably Skin: Warm, dry, no obvious rash Eyes: sclera anicteric, no conjunctiva pallor ENT: mucous membranes moist, pharynx appears normal Neck: Supple, nontender Respiratory: Clear to auscultation, no signs of respiratory distress Cardiovascular: Normal S1, S2. Harsh, early systolic murmur. Normal distal pulses in tibial and radial bilaterally. Abdomen: Soft, nontender, normal active bowel sounds present Musculoskeletal: Normal, Strength/ROM Intact Neurological: A&Ox3, awake and alert, mentation is normal, speech is fluent and appropriate Psychiatric: affect is normal, does not appear anxious or depressed Triage Information Reviewed: Yes Vital Signs On Initial Exam: Initial Vitals Temp Pulse Resp BP Pulse Ox 97 F 74 15 116/72 97 09/07/17 16:08 09/07/17 16:08 09/07/17 16:08 09/07/17 16:08 09/07/17 16:08 Vital Signs Reviewed: Yes Diagnostics - Vital Signs Vital Signs Temp Pulse Resp BP Pulse Ox 09/07/17 18:35 77 19 141/80 99 09/07/17 18:00 97 F 70 16 133/73 96 09/07/17 16:08 97 F 74 15 116/72 97 - Laboratory Lab Results: Lab Results 09/07/17 09/07/17 09/07/17 Range/Units 19:25 19:25 19:25 WBC 6.4 (3.5-10.8) 10^3/ul RBC 4.94 (4.0-5.4) 10^6/ul Hgb 14.2 (14.0-18.0) g/dl Hct 42 (42-52) % MCV 85 (80-94) fL MCH 29 (27-31) pg MCHC 34 (31-36) g/dl RDW 15 (10.5-15) % Plt Count 232 (150-450) 10^3/ul MPV 7.5 (7.4-10.4) um3 INR (Anticoag Therapy) 0.89 (0.77-1.02) Sodium 141 (139-145) mmol/L Potassium 3.7 (3.5-5.0) mmol/L Chloride 105 (101-111) mmol/L Carbon Dioxide 29 (22-32) mmol/L Anion Gap 7 (2-11) mmol/L BUN 12 (6-24) mg/dL Creatinine 0.96 (0.67-1.17) mg/dL Est GFR ( Amer) 101.1 (>60) Est GFR (Non-Af Amer) 78.6 (>60) BUN/Creatinine Ratio 12.5 (8-20) Glucose 77 (70-100) mg/dL Calcium 9.1 (8.6-10.3) mg/dL Total Bilirubin 0.50 (0.2-1.0) mg/dL AST 20 (13-39) U/L ALT 21 (7-52) U/L Alkaline Phosphatase 67 (34-104) U/L Troponin I 0.01 (<0.04) ng/mL Total Protein 6.6 (6.4-8.9) g/dL Albumin 4.0 (3.2-5.2) g/dL Globulin 2.6 (2-4) g/dL Albumin/Globulin Ratio 1.5 (1-3) 09/07/17 Range/Units 21:17 WBC (3.5-10.8) 10^3/ul RBC (4.0-5.4) 10^6/ul Hgb (14.0-18.0) g/dl Hct (42-52) % MCV (80-94) fL MCH (27-31) pg MCHC (31-36) g/dl RDW (10.5-15) % Plt Count (150-450) 10^3/ul MPV (7.4-10.4) um3 INR (Anticoag Therapy) (0.77-1.02) Sodium (139-145) mmol/L Potassium (3.5-5.0) mmol/L Chloride (101-111) mmol/L Carbon Dioxide (22-32) mmol/L Anion Gap (2-11) mmol/L BUN (6-24) mg/dL Creatinine (0.67-1.17) mg/dL Est GFR ( Amer) (>60) Est GFR (Non-Af Amer) (>60) BUN/Creatinine Ratio (8-20) Glucose (70-100) mg/dL Calcium (8.6-10.3) mg/dL Total Bilirubin (0.2-1.0) mg/dL AST (13-39) U/L ALT (7-52) U/L Alkaline Phosphatase (34-104) U/L Troponin I 0.01 (<0.04) ng/mL Total Protein (6.4-8.9) g/dL Albumin (3.2-5.2) g/dL Globulin (2-4) g/dL Albumin/Globulin Ratio (1-3) Result Diagrams: 09/07/17 19:25 09/07/17 19:25 Lab Statement: Any lab studies that have been ordered have been reviewed, and results considered in the medical decision making process. - Radiology CXR Radiology Interpretation Completed By: Radiologist - CXR reveals, per radiologist, mild enlarged cardiac silhouette, lungs clear. ED physician has reviewed this radiology report. - Additional Comments Diagnostic Additional Comments: EKG taken at 1609 reveals NSR at 72 BPM, P waves, QRS complex, and T waves are within normal limits, T waves and intervals are normal, no ischemic changes. This is a normal EKG Re-Evaluation - Re-Evaluation First Eval Re-Evaluation Time: 22:07 Change: Worse Comment: Pt reports dyspnea on exertion that began 2 nights ago. Pt has an 02 sat of 90-93 on room air. Second Eval Re-Evaluation Time: 00:45 Change: Improved Comment: Discussed plan of care with pt Chest Pain Course/Dx - Diagnoses Provider Diagnoses: Atypical chest pain - Provider Notifications Discussed Care Of Patient With: Ashkan Thurman Time Discussed With Above Provider: 22:15 Instructed by Provider To: Other - Consult with Dr. Thurman (cardiology) at 2215. He is aware of the pt and recommends pt be discharge. Discharge - Sign-Out/Discharge Documenting (check all that apply): Discharge/Admit/Transfer - Discharge Plan Condition: Good Disposition: HOME Patient Education Materials: Noncardiac Chest Pain (ED) Referrals: Cecy Javier MD [Primary Care Provider] - - Billing Disposition and Condition Condition: GOOD Disposition: HOME The documentation as recorded by the Samaria pires Emily accurately reflects the service I personally performed and the decisions made by me, Samir Choi MD.
== END 2017-09-08 01:13 | disposition home or self-care (01) ==
LOC: ED 16:00
DX: R07.89 Other chest pain (principal); I51.7 Cardiomegaly; I25.2 Old myocardial infarction; Z87.891 Personal history of nicotine dependence; Z88.0 Allergy status to penicillin; Z88.5 Allergy status to narcotic agent; Z88.8 Allergy status to other drugs, medicaments and biological substances
CPT/HCPCS: 36415; 71045; 80053; 84484; 85027; 85610; 93005; 96374; 96375; 96376; 99284; J1885; J2270

== ENCOUNTER → 2018-01-25 10:42 | Day surgery (SDC) | payer OTHER, MEDICARE ==
[~2018-01-25 10:42] MED LIST changes: +Buffered Lidocaine 0.9% SYRIN* 5 ML/SYR SYRINGE ONE; +EPHEDrine (Pressors)* 50 MG/ML VIAL ONE; +Famotidine IV* 10 MG/ML 2 ML (20 mg) IV ONE; +Famotidine IV* 10 MG/ML 2 ML (20 mg) ONE; +KETAMINE HCL* 50 MG/ML 10 ML VIAL ONE; +Lidocaine 2% PF * 5 ML VIAL ONE; +Lidocaine 2% VISCOUS* 15 ML UDC ONE; +Lidocaine 4% TOPICAL* 50 ML TOP.SOLN ONE; -Metoclopramide TAB* 10 MG PO ONE; +Midazolam* 1 MG/ML 5 ML VIAL (5 MG) ONE; +Ondansetron INJ* 2 MG/ML VIAL ONE; +Propofol* 10 MG/ML 20 ML BTL IV PUSH ONE; +fentaNYL* 50 MCG/ML 2 ML VIAL (100 MCG VIAL) ONE
[2018-01-25 16:24] VITALS: BP 113/73
--- NOTE | 2018-01-26 22:40 | PRO ---
CC: Cecy Javier MD * DATE OF PROCEDURE: 01/25/18 [facility] PH[facility]ICIAN: Cecy Javier MD INDICATION FOR PROCEDURE: Change in bowel habits for the colonoscopy and epigastric pain for the EGD. PROCEDURE PERFORMED: Complete esophagogastroduodenoscopy with complete colonoscopy to the terminal ileum. MEDICATIONS GIVEN: See the Anesthesia record. DESCRIPTION OF PROCEDURE: After the EGD and colonoscopy procedure including the risks, benefits, and alternatives with the risks not limited to perforation , surgery, missed lesions, and/or were explained to the patient, written consent was then obtained. IV medication was given by the anesthesia service and a bite-block was placed between the teeth. The Olympus gastroscope was passed through the patient's mouth through the upper esophageal sphincter into the tubular esophagus. The Z-line was mildly irregular. This was biopsied to rule out Matias esophagus. The scope was then passed through the GE junction at 40 cm into the stomach. There was some mild antral gastritis, it was biopsied, and CLOtested. The scope was retroflexed. No hiatal hernia was visualized. The scope was then advanced through the widely patent pylorus into the bulb and into the C-loop along with the distal duodenum, which were all normal in appearance. This was biopsied given his complaint of change of bowel habits, diarrhea to rule out malabsorption and celiac disease. The scope was then withdrawn from the patient. He was continued to receive IV medication through the anesthesia service and he was rotated for colonoscopy to be performed. The rectal exam was performed and was negative. The adult Olympus colonoscope was then inserted into the patient's rectum and advanced very carefully through the entirety of the colon and into the cecum and the terminal ileum. The cecal base was carefully inspected and normal in appearance. The terminal ileum was identified and intubated x4 to 5 cm and normal in appearance. Over the next 10 minutes, the scope was carefully withdrawn. He did have some small scattered aphthous ulcerations at 45 cm and 20 cm. There were only 1 to 2 in each location and this looked more like an NSAID or medication- induced ulceration than any type of inflammatory bowel disease. I did take biopsies of these and I also did take random biopsies throughout the colon for microscopic colitis. He did have mild left-sided diverticulosis coli. The remainder of the direct views in the colon were normal including the direct views of the rectum. On retroflexion, he had grade 1 internal hemorrhoids as well. IMPRESSION: 1. Complete esophagogastroduodenoscopy with biopsies. 2. Mild irregularity at the Z-line, biopsy to rule out Matias esophagus. 3. Gastritis, biopsied for CLOtesting. 4. Normal-appearing duodenum. Given diarrhea, biopsied to rule out malabsorption or celiac disease. 5. Complete colonoscopy with terminal ileal intubation. 6. Scattered aphthous ulcerations at 45 cm and 20 cm, biopsied, likely NSAID- induced based on the appearance. 7. Biopsies taken randomly throughout the colon for microscopic colitis. 8. Fair prep, but otherwise grossly normal colonoscopy. RECOMMENDATIONS: I advised the patient to resume his Effient immediately as there was no large polyps or anything to remove. Small biopsies were taken, but it is safe to resume his Effient at this time. He does have significant relief from his pain after a large bowel movement. I suspect some of his both epigastric pain and diarrhea may actually be overflow constipation in nature. I advised him since he has completed the prep to begin taking MiraLAX on a daily basis and even up titrate it to twice a day. On the upper endoscopy, no clear cause of his epigastric pain was seen, mild irregularity of the Z-line and some mild gastritis was noted, but I do not believe this is enough to cause him his discomfort. I think this is more related to his constipation with overflow. Jim will try these recommendations in regards to his bowels and then will report back to me via phone call in 1 month to discuss if any further management is needed after that time. I will follow up on the biopsy results. He should have a repeat colonoscopy in 5 years given his history of adenomatous polyps in the past. [id number]/CPS #: [id number] [facility]
== END | disposition home or self-care (01) ==
LOC: OR 10:42
PROVIDERS: ATTEND Internal Medicine Gastroenterology
DX: R10.13 Epigastric pain (principal); K21.0 Gastro-esophageal reflux disease with esophagitis; K29.70 Gastritis, unspecified, without bleeding; R19.4 Change in bowel habit; K63.3 Ulcer of intestine; Z86.010 Personal history of colon polyps
CPT/HCPCS: 87077; 88305; 88342; J2250; J2405; J2704; J3010

== ENCOUNTER 2018-02-22 13:38 | Observation (INO) | payer OTHER, MEDICARE ==
--- OUTSIDE RECORDS SUMMARY | 2018-02-22 13:55 | XMS REPORT ---
:1950 External Reference #:[id number] Author Organization [facility] Address [address] [place] [address] [place] [address] Phone [phone] Care Team Providers Name Role Phone Denisse Morrissey MD Care Team Information It Service Delivery Manager Unavailable Jae Ellison MD Primary Care Physician Unavailable Payers Type Date Identification Numbers Payment Provider Subscriber Commercial Effective: Policy Number: [id number] tna-[facility] Tiffanie Johnson 2013 Group Number: [id number] [address] PayID: [id number] [place] [address] Mediaustin Part B Policy Number: [id number] Medicare Jim Johnson PayID: [id number] [address] [place] [address] Medigap Part B Expires: 2013 Policy Number: [employer] Tiffanie Johnson [id number] Group Number: [id number] [address] PayID: [id number] [place] [address] Problems Date Description Provider Status Onset: 02/27/2013 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 Active diabetes mellitus Onset: 02/27/2013 Essential hypertension Evonne Mccracken M.D. Active Onset: 02/27/2013 Mixed hyperlipidemia Evonne Mccracken M.D. Active Onset: 02/27/2013 Morbid obesity Evonne Mccracekn M.D. Active Onset: 02/27/2013 Obstructive sleep apnea syndrome Evonne Mccracken M.D. Active Onset: 02/27/2013 Aortic valve disorder Evonne Mccracken M.D. Active Onset: 10/30/2014 Cardiovascular symptoms Evonne Mccracken M.D. Active Onset: 01/12/2015 Type 2 diabetes mellitus with Rao Reddy M.D. Active diabetic polyneuropathy Onset: 10/12/2015 Athscl heart disease of [place] cor Evonne Mccracken M.D. Active art w unsp ang pctrs Onset: 11/04/2015 Chest pain Evonne Mccracken M.D. Active Onset: 11/04/2015 Athscl autologous vein CABG w unsp Evonne Mccracken M.D. Active angina pectoris Onset: 04/27/2016 Chronic ischemic heart disease Evonne Mccracken M.D. Active Onset: 04/27/2016 Recurrent coronary arteriosclerosis Evonne Mccracken M.D. Active after percutaneous transluminal coronary angioplasty Onset: 11/09/2016 Chronic diastolic heart failure Evonne Mccracken M.D. Active Onset: 11/09/2016 Old myocardial infarction Evonne Mccracken M.D. Active Onset: 01/11/2018 Arteriosclerosis of coronary artery Evonne Mccracken M.D. Active bypass graft Family History Date Family Member(s) Problem(s) Comments [...] weakness 11/16/2015 Lactose (Intolerance) active 10/05/2016 Rosuvastatin Calcium active not effective, no allergy 02/17/2013 Codeine inactive 05/23/2016 Lipitor inactive Medications Medication Date Status Form Strength Qnty SIG Indications Ordering Provider Carpal Tunnel 06/27 Active Misc 1unit bilateral G56.03 Rao Alvarez Wrist /2017 s splints Maureen Stabilizer/Large to be M.D. /X-Large used at night Praluent 01/31 Active Solution 150mg/ml 2ml 1 E78.2 Evonne Pen-Inject injection [place], sc every M.D. 2 weeks Clindamycin HCL 06/02 Active Capsules 300mg 2caps 2 tabs by Evonne mouth 1 [place], hour M.D. prior to dental work ( Has but never used ) Metoprolol 05/31 Active Tablets ER 25mg 270ta 2 tabs in Evonne Succinate 24HR bs the [place], morning M.D. and 1 tab at night Amlodipine 05/16 Active Tablets 5mg 180ta 1 by R07.9 Evonne Besearnest bs mouth [place], twice a M.D. day Lyrica 07/18 Active Capsules 100mg 180ca 1 by Moncho /2015 ps mouth Nikhil Calhoun twice a day (in addition to 200mg dose) code d Lyrica 04/13 Active Capsules 200mg 180ca 1 by Rao Alvarez /2014 ps mouth Maureen, bid- code M.D. d Nexium Active Capsules 40mg 30cap 1 po qd Unknown /0000 DR hamilton Clarinex Active Tablets 5mg 30tab 1 po qd Unknown s Cymbalta Active Caps DR 30mg 180ca 2 by Barbie Everett, Part ps mouth MD every morning Metformin HCL Active Tablets 1000mg 180ta 1 po bid Unknown / bs Bydureon Active Suspension 2mg 4unit inject Unknown Rec s sub q weekly Mondays Magnesium Oxide Active Capsules 400mg 1 po bid Unknown Flax Seed Oil Active 1000mg 1 po Unknown / daily Vitamin D Active 1 tab po Unknown / daily Tylenol Extra Active 2 tablet Unknown Strength / PO prn Symbicort Aer Active Aerosol 160/4.5 2 puffs Unknown twice a day rinse mouth after using Spiriva Active Capsules 18mcg 1 unit Unknown Handihaler / inhalatio n daily Lantus Solostar Active Solution 100Unit/M 60 units Unknown / Pen-Inject L daily Proair HFA Active Aerosol 108(90Bas 2 puffs Unknown / e) by mouth mcg/Act every 4 hours as needed Effient Active Tablets 10mg 90tab 1 by Evonne s mouth [place], every day M.D. Aspirin Ec Active Tablets DR 81mg 90tab 1 by Evonne s mouth [place], every day M.D. Nitrostat Active Tablets 0.4mg 25tab one sl Evonne Sub s q5min up Kaykay, to 3 M.D. doses as needed Lisinopril Active Tablets 10mg 135ta 1 1/2 by Evonne / bs mouth [place], every day M.D. Torsemide Active Tablets 20mg 1/2 tab Unknown / by mouth daily Vitamin B12 Active Tablets ER 1000mcg 1 by Unknown /0000 mouth every day Colace Active Capsules 100mg 1 tab by Unknown /0000 mouth bid Miralax Active Packet [id number] dissolve Unknown / 1 teaspoonl ul powder in 8 onces of water bid Restasis Active Emulsion 0.05% 2 drops Unknown / qd Colchicine Active Tablets 0.6mg 1 by Unknown /0000 mouth every day as needed Praluent 09/14 Hx Solution 75mg/ml 4ml 1 E78.2 Evonne Pen-Inject injection [place], - sc every M.D. 01/31 2 weeks Rosuvastatin 06/26 Hx Tablets 40mg 90tab 1 by Evonne Calcium s mouth [place], - every day M.D. 09/14 (On Hold) Rosuvastatin 06/22 Hx Tablets 20mg 90tab 1 tab by E78.2 Evonne Calcium s mouth [place], - every M.D. . Colchicine 06/02 Hx Tablets 0.6mg 14tab 1 by Evonne s mouth [place], - every day M.D. 10/24 (pt not taking and has not used) [place] 12/29 Hx Tablets 10-325mg 30tab 1 tab po s q 4-6 Nikhil Morrissey - hours prn 03/21 pain Amlodipine 11/03 Hx Tablets 2.5mg 30tab 1 by R07.9 Evonne Besylate s mouth [place], - every day M.D. 05/16 [place]le 09/29 Hx Tablets 5-325mg 40tab one to s two tabs Nikhil Morrissey - by mouth 03/21 every - hours as needed pain Lyrica 04/02 Hx Capsules 100mg 120ca 2 by Rao ps mouth Maureen, - every M.D. 07/18 and 3 every evening Losartan 03/31 Hx Tablets 25mg 90tab 1 by 401.1 Evonne s mouth [place], - every day M.D. 04/01 Glucosamine HCL 12/31 Hx Tablets 1500mg 1 tab po daily Vanessa Reddy M.D. 04/28 Lyrica 12/31 Hx Capsules 200mg 180ca 1 tab PO ps bid code Gnadt, [employer] - d 04/02 Lyrica 07/03 Hx Capsules 150mg 60cap 1 twice a [place] s day Vanessa Reddy M.[place] 12/31 Cozaar Hx Tablets 100mg 90tab 1/2 Unknown /0000 s tablet po - qd (take 04/29 with a mg tablet for a total of 75 mg daily). Toprol XL 00/ Hx Tablets ER 25mg 30tab 1 po qd Unknown /0000 24HR s - 04/25 Pravachol 00/ Hx Tablets 20mg 90tab 1 tablets Unknown /0000 s po qhs - 11/08 Advair Diskus 00/ Hx Aerosol 250-50mcg 3unit 1 puff po Unknown /0000 /Dose s bid - 12/22 Amitriptyline 00/ Hx Tablets 25mg 30tab 1 po qhs Unknown HCL /0000 s - 10/24 Restasis 00 Hx Emulsion 0.05% 2unit one gtts Unknown /0000 s ou bid - 04/28 Singulair 00/00 Hx Tablets 10mg 30tab 1 po qd Unknown /0000 s - 10/30 Aggrenox 00/00 Hx Caps ER 25-200mg 60cap 1 po bid Unknown /0000 12HR s - 04/26 Hydrochlorothiaz 00/00 Hx Capsules 12.5mg 30cap 1/2 tab Unknown trevor /0000 s po qd - 02/27 Pioglitazone HCL 00/ Hx Tablets 45mg 90tab 1 po qd Unknown /0000 s - 04/01 Hydrochlorothiaz 00/00 Hx Tablets 6.25 2 po qd Unknown trevor /0000 - 09/10 Fluticasone 00/00 Hx Suspension 50mcg/Act 3unit 1 spray Unknown Propionate /0000 s each - nostril 01/11 /2016 Androgel 00/00 Hx Gel 40.5mg/2. 75g 2 pump Unknown /0000 5GM actuation - (1.62%) s daily 04/01 Humulin N 00/00 Hx 50Units qhs Unknown /0000 - 05/19 Xopenex HFA 00/00 Hx inhale Unknown /0000 prn - 09/10 Sucralfate 00/00 Hx Tablets 1gm 1 tab po Sierra, /0000 3-4 daily Sae Bee - prn 04/30 Systane 00/00 Hx Solution 0.4-0.3% 60ml one drop Unknown /0000 in each - eye as 07/18 Lantus Solostar 00/00 Hx Solution 100Unit/M 30 units Unknown /0000 Pen-Inject L daily - 01/11 Cozaar 00/00 Hx Tablets 25mg 1 by Unknown /0000 mouth - every day 10/24 Vitamin B-12 ER 00/00 Hx Tablets ER 1000mcg 1 by Unknown /0000 mouth - every day 05/06 Actos 00/00 Hx Tablets 45mg 1 by Unknown /0000 mouth - every day 01/11 Lactage Enzyme 00/00 Hx 5mg prn Unknown /0000 Androgel 00/00 Hx Gel 20.25mg/1 1 pump Unknown /0000 .25GM applied - (1.62%) once a 09/10 day the morning Bisoprolol 00/00 Hx Tablets 5-6.25mg 1 by Unknown Fumarate/Hydroch /0000 mouth po lorothiazide - twice 04/26 Pulmicort Hx Aerosol 180mcg/Ac 2 puffs Unknown Flexhaler [...] Millicuries Vital Signs Date Vital Result Comment 01/11/2018 Height 73 inches 6'1" Weight 231.00 lb Heart Rate 73 /min BP Systolic Sitting 110 mmHg lue reg cuff BP Diastolic Sitting 70 mmHg lue reg cuff BP Systolic Standing 110 mmHg lue reg cuff BP Diastolic Standing 70 mmHg lue reg cuff Respiratory Rate 16 /min O2 % BldC Oximetry 93 % lap1 (90%, HR 80) lap2 (93%, HR 96) BMI (Body Mass Index) 30.5 kg/m2 Ejection Fraction 55-60% 01/08/2018 Height 73 inches 6'1" Weight 231.00 lb Heart Rate 76 /min BP Systolic Sitting 120 mmHg BP Diastolic Sitting 70 mmHg BMI (Body Mass Index) 30.5 kg/m2 12/06/2017 Heart Rate 80 /min Respiratory Rate 18 /min Body Temperature 96.6 F 10/15/2017 Height 73 inches 6'1" Weight 232.00 lb w/ shoes Heart Rate 86 /min BP Systolic Sitting 124 mmHg Rue reg cuff BP Diastolic Sitting 74 mmHg Rue reg cuff BP Systolic Standing 124 mmHg Rue BP Diastolic Standing 80 mmHg Rue Respiratory Rate 16 /min BMI (Body Mass Index) 30.6 kg/m2 Ejection Fraction 55-60% as of 09/21/17 echo 09/07/2017 Height 73 inches 6'1" Weight 233.25 [...] Test Result H/L Range Note Laboratory test 01/17/2018 Fructosamine 229 mcmol/L 200 - 285 1 finding Laboratory test 07/03/2017 Fructosamine 231 mcmol/L 200 - 285 2 finding Laboratory test 06/19/2017 Fructosamine 238 mcmol/L 200 - 285 3 finding Laboratory test 05/22/2017 Point of Care Glucose 103 mg/dL High 70-100 4 finding Lipid Profile 04/24/2017 Triglycerides 201 mg/dL 5, 6 (Trig/Chol/HDL) Cholesterol 167 mg/dL 5, 7 HDL Cholesterol 39.9 mg/dL 5, 8 LDL Cholesterol 87 mg/dL 5, 9 Laboratory test finding 04/24/2017 Fructosamine 305 mcmol/L 200 - 285 5 , 10 Lipid Panel - [facility] 01/31/2017 Creatine Kinase(CK) 40 U/L 10-223 Comp [...] Egfr Non- 78.6 >60 Egfr 101.1 >60 11 Lipid Profile (Trig/Chol/HDL) 01/31/2017 Triglycerides 163 mg/dL 12 Cholesterol 194 mg/dL 13 HDL Cholesterol 36.0 mg/dL 14 LDL Cholesterol 125 mg/dL 15 FLP/Alt Panel 10/27/2016 Alt 17 U/L 7-52 16 Lipid Profile (Trig/Chol/HDL) 10/27/2016 Triglycerides 215 mg/dL 17 Cholesterol 298 mg/dL 18 HDL Cholesterol 36.3 mg/dL 19 LDL Cholesterol 219 mg/dL 20 Laboratory test finding 09/27/2016 Creatine Kinase(CK) 63 U/L 10-223 21 Basic Metabolic Panel 09/27/2016 Sodium 138 mmol/L 133-145 Potassium 3.7 mmol/L 3.5-5.0 Chloride 104 mmol/L 101-111 Co2 Carbon Dioxide 26 mmol/L 22-32 Anion Gap 8 mmol/L 2-11 Glucose 122 mg/dL High 70-100 Blood Urea Nitrogen 12 mg/dL 6-24 Creatinine 0.89 mg/dL 0.67-1.17 BUN/Creatinine Ratio 13.5 8-20 Calcium 9.1 mg/dL 8.6-10.3 Egfr Non- 86.1 >60 Egfr 110.7 >60 22 Comp Metabolic Panel 09/08/2016 Sodium 140 mmol/L [...] Egfr Non- 77.0 >60 Egfr 99.0 >60 23 Lipid Profile (Trig/Chol/HDL) 09/08/2016 Triglycerides 105 mg/dL 24 Cholesterol 120 mg/dL 25 HDL Cholesterol 35.4 mg/dL 26 LDL Cholesterol 64 mg/dL 27 Lipid Panel - [facility] 09/08/2016 Creatine Kinase(CK) 1050 U/L High 10-223 Rapid Influenza A & B 06/23/2016 Influenza A Molecular NEGATIVE Negative 28 Molecular Influenza B Molecular NEGATIVE Negative Laboratory test finding 06/23/2016 Influenza A & B Request SEE RESULT BELOW 29 Lipid Profile 06/23/2016 Triglycerides 181 mg/dL 30 (Trig/Chol/HDL) Cholesterol 317 mg/dL 31 HDL Cholesterol 43.5 mg/dL 32 LDL Cholesterol 237 mg/dL 33 CBC Auto Diff 05/31/2016 White Blood Count [...] finding 05/31/2016 CRP High Sensitivity 1.80 mg/L 34 Erythrocyte Sed Rate 13 mm/Hr 0-20 Comp Metabolic Panel 03/21/2016 Sodium 134 mmol/L 133-145 35 Potassium 4.6 mmol/L 3.5-5.0 35 Chloride 99 mmol/L Low 101-111 35 Co2 Carbon Dioxide 29 mmol/L 22-32 35 Anion Gap 6 mmol/L 2-11 35 Glucose 320 mg/dL High 70-100 35 Blood Urea Nitrogen 13 mg/dL 6-24 35 Creatinine 1.00 mg/dL 0.67-1.17 35 BUN/Creatinine Ratio 13.0 8-20 35 Calcium 9.2 mg/dL 8.6-10.3 35 Total Protein 6.5 g/dL 6.4-8.9 35 Albumin 4.0 g/dL 3.2-5.2 35 Globulin 2.5 g/dL 2-4 35 Albumin/Globulin Ratio 1.6 1-3 35 Total Bilirubin 0.90 mg/dL 0.2-1.0 35 Alkaline Phosphatase 64 U/L 34-104 35 Alt 19 U/L 7-52 35 Ast 16 U/L 13-39 35 Egfr Non- 75.2 >60 35 Egfr 96.7 >60 35, 36 Lipid Profile (Trig/Chol/HDL) 03/21/2016 Triglycerides 223 mg/dL 35, 37 Cholesterol 134 mg/dL 35, 38 HDL Cholesterol 35.8 mg/dL 35, 39 LDL Cholesterol 54 mg/dL 35, 40 Liver Function Panel 03/21/2016 Direct Bilirubin 0.10 mg/dL 0.03-0.18 35 Indirect Bilirubin 0.8 mg/dL 0.3-1.0 35 Urine Microalbumin Random 03/21/2016 Urine Creatinine 115.59 mg/dL 35 Ur Microalbumin (mg/L) 57.0 mg/L 35 Urine Microalbumin/Creatinine 49.3 ug/mg High <31 35 Laboratory test finding 01/07/2016 Point of Care Glucose 186 mg/dL High 74 -106 41 Laboratory test finding 10/29/2015 Point of Care Glucose 212 mg/dL High 74 -106 42 Basic Metabolic Panel 10/27/2015 Sodium 139 mmol/L 133-145 Potassium 3.7 mmol/L 3.5-5.0 Chloride 101 mmol/L 101-111 Co2 Carbon Dioxide 31 mmol/L 22-32 Anion Gap 7 mmol/L 2-11 Glucose 130 mg/dL High 70-100 Blood Urea Nitrogen 12 mg/dL 6-24 Creatinine 0.93 mg/dL 0.67-1.17 BUN/Creatinine Ratio 12.9 8-20 Calcium 8.8 mg/dL 8.6-10.3 Egfr Non- 81.8 >60 Egfr 105.2 >60 43 Laboratory test finding 10/27/2015 Ast (Sgot) 20 U/L 13-39 Lipid Profile (Trig/Chol/HDL) 10/27/2015 Triglycerides 145 mg/dL 44 Cholesterol 149 mg/dL 45 HDL Cholesterol 40.6 mg/dL 46 LDL Cholesterol 79 mg/dL 47 Testosterone Profile 06/08/2015 Testosterone 363 ng/dL 240-950 48 Free Testosterone ng/dl 10.5 ng/dL 3.67-13.9 49 Bioavailable Testosterone 123 ng/dL 40-168 50 CBC Auto Diff 05/12/2014 White Blood Count [...] Egfr Non- 74.0 >60 Egfr 95.2 >60 51 Lipid Profile (Trig/Chol/HDL) 05/12/2014 Triglycerides 136 mg/dL 52 Cholesterol 125 mg/dL 53 HDL Cholesterol 40.1 mg/dL 54 LDL Cholesterol 58 mg/dL 55 Liver Function Panel 05/12/2014 Direct Bilirubin 0.10 mg/dL 0.03-0.18 Indirect Bilirubin 0.5 mg/dL 0.3-1.0 Laboratory test finding 05/12/2014 TSH (Thyroid Stimulating 2.76 IU/mL 0.34-5.60 Horm) Testosterone 349.36 ng/dL 240-950 1 Test Performed by: [place] [address] 2 Test Performed by: [place] [address] 3 Test Performed by: [place] [address] 4 Business Case Analyst: [id number] Desirable: <150 Borderline High: 150-199 High: 200-499 Very High: >500 7 Desirable: <200 Borderline High: 200-239 High: >239 8 Low: <40 Desirable: 40-60 High: >60 9 Desirable: <100 Near Optimal: 100-129 Borderline High: 130-159 High: 160-189 Very High: >189 10 Test Performed by: [address] [address] 11 Because ethnic data is not always readily [...] 15-29 5 Kidney failure <15 (or dialysis) 12 Desirable <150 Borderline high 150-199 High 200-499 Very High >500 13 Desirable <200 Borderline high 200-239 High >239 14 Low <40 Desirable: 40-60 High: >60 15 Desirable: <100 mg/dL Near Optimal: 100-129 mg/dL Borderline High: 130-159 mg/dL High: 160-189 mg/dL Very High: >189 mg/dL 16 Fasting prior to starting Praluent and off of Crestor PT IS NOT FASTING 17 Desirable <150 Borderline high 150-199 High 200-499 Very High >500 18 Desirable <200 Borderline high 200-239 High >239 19 Low <40 Desirable: 40-60 High: >60 20 Desirable: <100 mg/dL Near Optimal: 100-129 mg/dL Borderline High: 130-159 mg/dL High: 160-189 mg/dL Very High: >189 mg/dL 21 non-fasting ok- in 1-2 weeks to reevaluate high CK level 22 Because ethnic data is not always readily [...] 15-29 5 Kidney failure <15 (or dialysis) 23 Because ethnic data is not always readily [...] 15-29 5 Kidney failure <15 (or dialysis) 24 Desirable <150 Borderline high 150-199 High 200-499 Very High >500 25 Desirable <200 Borderline high 200-239 High >239 26 Low <40 Desirable: 40-60 High: >60 27 Desirable: <100 mg/dL Near Optimal: 100-129 mg/dL Borderline High: 130-159 mg/dL High: 160-189 mg/dL Very High: >189 mg/dL 28 Business Case Analyst: [id number] EMELIA RABAGO 29 SEE RESULT BELOW Name: JIM JOHNSON JR : [address]: Evonne Mccracken MD Acct: [id number] Unit: [id number] AGE: 65 Location: [facility] Re06/23/16 SEX: M Status: REG REF SPEC: [id number] TERESA: 06/23/[address]: Evonne Mccracken MD REQ: [id number] RECD: 06/23/16 STATUS: COMP OTHR DR: Jae Ellison MD _ SOURCE: NASAL SPDESC: ORDERED: Flu A B Request COMMENTS: Copy Result to: JAE ELLISON ([id number]) Procedure Result Reported Site Rapid Influenza A B Request Final 06/23/16- 1148 ML Specimen received for Influenza A/B Molecular testing * ML - MAIN LAB ([facility]) . END OF REPORT * ML=Testing performed at Main Lab DEPARTMENT OF PATHOLOGY, [address] [place] [address] Jaycob Soto M.D. Director [facility] # [id number] 30 Desirable <150 Borderline high 150-199 High 200-499 Very High >500 31 Desirable <200 Borderline high 200-239 High >239 32 Low <40 Desirable: 40-60 High: >60 33 Desirable: <100 mg/dL Near Optimal: 100-129 mg/dL Borderline High: 130-159 mg/dL High: 160-189 mg/dL Very High: >189 mg/dL 34 Low risk: <1.00 Average risk: 1.00-3.00 High risk: >3.00 35 [id number] 36 Because ethnic data is not always readily [...] 15-29 5 Kidney failure <15 (or dialysis) 37 Desirable <150 Borderline high 150-199 High 200-499 Very High >500 38 Desirable <200 Borderline high 200-239 High >239 39 Low <40 Desirable: 40-60 High: >60 40 Desirable: <100 mg/dL Near Optimal: 100-129 mg/dL Borderline High: 130-159 mg/dL High: 160-189 mg/dL Very High: >189 mg/dL 41 Business Case Analyst: [id number] AUSTIN MANNINGCY 42 Business Case Analyst: [id number] TRUNG MUNOZAH 43 Because ethnic data is not always readily [...] 15-29 5 Kidney failure <15 (or dialysis) 44 Desirable <150 Borderline high 150-199 High 200-499 Very High >500 45 Desirable <200 Borderline high 200-239 High >239 46 Low <40 Desirable: 40-60 High: >60 47 Desirable: <100 mg/dL Near Optimal: 100-129 mg/dL Borderline High: 130-159 mg/dL High: 160-189 mg/dL Very High: >189 mg/dL 48 ADDITIONAL INFORMATION Testing performed by Liquid Chromatography-Tandem Mass Spectrometry (LC-MS/MS). 49 ADDITIONAL INFORMATION Testing performed by Equilibrium Dialysis. 50 ADDITIONAL INFORMATION Testing performed by Differential Precipitation. Test Performed by: [address] [address] Household Appliance Repairer: Trevin G. Morice, II, M.D., Ph.D. 51 Because ethnic data is not always readily [...] 15-29 5 Kidney failure <15 (or dialysis) 52 Desirable <150 Borderline high 150-199 High 200-499 Very High >500 53 Desirable <200 Borderline high 200-239 High >239 54 Low <40 Desirable: 40-60 High: >60 55 Desirable <100 Near Optimal 100-129 Borderline high 130-159 High 160-189 Very High >189 Procedures Date CPT Code Description Status 02/07/2018 68447 Stress ECHO Interpretation/Report Hospital Completed 02/07/2018 31420 Treadmill Interp/Report Only Completed 02/07/2018 86915 Stress Test Supervsn W/Out I/R Completed 02/05/2018 39358 Holter Monitor Review (24 hr)dr review & interp only Completed 01/29/2018 23960 ECG Monitor/Recording W/Visual Superimposition Scanning Completed 01/11/2018 33792 EKG Tracing & Interpretation Completed 10/15/2017 10163 EKG Tracing & Interpretation Completed 09/21/2017 66673 ECHO Transthoracic, Real-Time 2D With Doppler And Color Completed Flow 09/21/2017 12549 ECHO Transthoracic, Real-Time 2D With Doppler And Color Completed Flow 09/07/2017 74976 EKG Tracing & Interpretation Completed 07/20/2017 65586 Nerve Conduction 07-08 Studies Completed 05/22/2017 94642 Repair Hernia Umbilical > 5 Yrs, Reducible Completed 05/22/2017 16505 Repair Hernia Umbilical > 5 Yrs, Reducible Completed 05/22/2017 29792 Repair Hernia Umbilical > 5 Yrs, Reducible Completed 05/07/2017 54330 EKG Tracing & Interpretation Completed 11/09/2016 01312 EKG Tracing & Interpretation Completed 10/20/2016 56198 Cardiac Cath,LT Hrtmincl Intraprocedural Ink LT Completed Ventricul Mammary 10/20/2016 63137 ECHO Stress Test Incl Perf Contiuous ekg Monitoring Completed W/Phys Superv 10/20/2016 88659 ECHO Stress Test Incl Perf Contiuous ekg Monitoring Completed W/Phys Superv 06/22/2016 88247 EKG Tracing & Interpretation Completed 05/17/2016 11538 ECHO Transthoracic, Real-Time 2D With Doppler And Color Completed Flow 05/16/2016 59985 Stress Test Completed 04/27/2016 49093 EKG Tracing & Interpretation Completed 04/14/2016 90576 Cardiac Cath,LT Hrtmincl Intraprocedural Ink LT Completed Ventricul Mammary 01/07/2016 31923 Neuroplasty &/Or Transposition; Ulnar Nerve AT Elbow Completed 01/07/2016 48886 Neuroplasty &/Or Transposition; Ulnar Nerve AT Elbow Completed 12/30/2015 53952 EKG Tracing & Interpretation Completed 11/04/2015 33583 EKG Tracing & Interpretation Completed 10/29/2015 55070 Neuroplasty &/Or Transposition; Ulnar Nerve AT Elbow Completed 10/29/2015 15586 Neuroplasty &/Or Transposition; Ulnar Nerve AT Elbow Completed 10/19/2015 04411 ECHO Transthoracic, Real-Time 2D With Doppler And Color Completed Flow 10/15/2015 83369 Treadmill Interp/Report Only Completed 10/15/2015 75525 Stress Test Supervsn W/Out I/R Completed 10/12/2015 62476 EKG Tracing & Interpretation Completed 04/02/2015 39317 Nerve Conduction 07-08 Studies Completed 11/05/2014 27134 Carotid Doppler,Bilateral Completed 05/15/2014 91529 Stress Test Completed 05/15/2014 51892 Myocardial Perfusion Imaging Tomographic (Spect) Completed Multiple Studies 05/15/2014 49018 Myocardial Perfusion Imaging Tomographic (Spect) Completed Multiple Studies 04/13/2014 08043 ECHO Stress Test Incl Perf Contiuous ekg Monitoring Completed W/Phys Superv 03/31/2014 87922 EKG Tracing & Interpretation Completed 03/18/2014 23875 ECHO Transthoracic, Real-Time 2D With Doppler And Color Completed Flow 02/28/2013 12824 Nerve Conduction 07-08 Studies Completed 02/27/2013 32610 EKG Tracing & Interpretation Completed 02/22/2012 16108 EKG Tracing & Interpretation Completed 02/13/2012 86263 ECHO Transthoracic, Real-Time 2D With Doppler And Color Completed Flow Encounters Type Date Location Provider CPT E/M Dx Office Visit 01/11/2018 4:00p [facility] Jose Manuel Mccracken M.D. 01627 R00.2 [facility] R06.02 I25.2 I25.729 I35.0 Office Visit 01/08/2018 8:30a [facility] Rao Reddy, 83340 E11.42 Services Of Allie Tejeda G56.22 G56.21 Office Visit 12/06/2017 10:00a [facility] [place] [address] K42.9 [facility] M54.6 E66.9 Office Visit 10/15/2017 2:40p [facility] Of Evonne Mccracken M.D. 37299 I35.0 Allie R07.9 R06.02 E11.8 I25.810 Office Visit 09/07/2017 2:40p [facility] Of Evonne Mccracken M.D. 55354 I25.729 [facility] R07.9 R06.02 I35.0 R53.83 Office Visit 06/27/2017 2:30p [facility] Rao Reddy, 76013 E11.42 Services Of Allie Tejeda G56.03 Office Visit 05/07/2017 2:40p [facility] Of Evonne Mccracken M.D. 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 95312 R07.89 [facility] I10 I50.32 I25.2 Office Visit 10/25/2016 1:30p [facility] Rao Reddy, 73652 E11.42 Services Of [facility] [place] Office Visit 10/21/2016 1:36p [facility] Of Anup Varghese, 48059 R07.9 [facility] AT [facility] ROMAN GARCIA, FSCAI I50.32 Office Visit 10/20/2016 9:12a [facility] Of Anup Varghese, 57139 I20.0 [facility] , ROMAN, FSCAI Office Visit 09/14/2016 8:15a [facility] Of NICHOLAS Stephenson 61454 I10 [facility] E78.2 I25.810 R07.9 I25.2 Office Visit 08/09/2016 8:30a [facility] NICHOLAS Stephenson 68862 I10 E78.2 I25.810 Office Visit 06/22/2016 3:15p [facility] Of Evonne Mccracken M.D. 74963 E78.2 [facility] I10 I25.810 Z68.32 J20.9 R07.9 Office Visit 05/31/2016 8:30a [facility] NICHOLAS Stephenson 91670 I10 R07.89 I25.10 I25.5 Office Visit 05/23/2016 9:00a [facility] Rao Reddy, 34672 G56.23 MOrlandoDOrlando E11.42 Office Visit 05/03/2016 8:00a Orthopedic Services Denisse Morrissey, 94968 G56.22 Of Santiago Tejeda G56.21 G56.23 Office Visit 04/27/2016 2:30p [facility] Of vEonne Mccracken M.D. 84891 I25.5 [facility] I25.10 E78.2 I10 I35.0 Office Visit 04/14/2016 3:13p [facility] [place] [address] I21.4 [facility] I25.810 Z95.1 Office Visit 04/14/2016 8:53a [facility],cindy Biggs, 53505 I25.110 Hospitalists Nikhil E11.9 Z79.4 Office Visit 12/30/2015 3:15p [facility] Of Evonne Mccracken M.D. 35699 Z01.810 [facility] I25.810 G56.22 E11.8 I10 E78.2 I35.0 Office Visit 11/16/2015 8:30a [facility] Rao Reddy, 96952 E11.42 Services Of Allie Tejeda G56.22 Office Visit 11/15/2015 3:30p [facility] NICHOLAS Stephenson 25480 R94.30 I25.119 I10 Office Visit 11/04/2015 1:30p [facility] Of Evonne Mccracken M.D. 49659 I25.719 [facility] R07.9 R06.02 I10 E78.2 I35.0 Office Visit 10/28/2015 2:00p [facility] NICHOLAS Stephenson 58964 I25.119 I10 R06.02 I35.0 R94.30 Office Visit 10/12/2015 8:30a [facility] Of Evonne Mccracken M.D. 93454 I25.119 [facility] R06.02 E78.2 I10 E11.8 Z68.32 I35.0 Office Visit 09/30/2015 8:30a Orthopedic Services Denisse Morrissey, 77625 G56.21 Of Santiago Tejeda G56.22 Office Visit 07/20/2015 8:30a [facility] Rao Reddy, 99364 G56.21 Services Of Allie Tejeda G56.22 E11.42 Office Visit 01/12/2015 8:30a [facility] Rao Reddy, 47231 E11.42 Services Of Allie Tejeda G31.84 Office Visit 10/30/2014 8:30a [facility] Of Evonne Mccracken M.D. 28533 414.02 [facility] 272.2 401.1 782.3 785.9 Office Visit 06/30/2014 9:45a [facility] Rao Reddy, 21084 250.60 Services Of Allie Tejeda 357.2 Office Visit 05/20/2014 9:00a [facility] NICHOLAS Stephenson 93718 401.1 424.1 493.90 272.2 414.02 250.60 Office Visit 04/29/2014 9:00a [facility] NICHOLAS Stephenson 93769 424.1 401.1 786.09 272.2 493.90 Office Visit 03/31/2014 9:45a [facility] Of Evonne Mccracken M.D. 21071 424.1 [employer] 414.02 786.50 786.09 401.1 Office Visit 12/31/2013 9:45a [facility] Rao Reddy, 57970 354.2 Services Of Allie Tejeda 250.60 357.2 Office Visit 04/30/2013 10:23a [facility], Veronica Vazquez, 96769 481 Hospitalists D.O. 995.91 493.90 250.00 Office Visit 04/29/2013 10:23a [facility], Veronica Vazquez, 22727 481 Hospitalists D.O. 995.91 493.90 250.00 Office Visit 04/28/2013 10:23a [facility], Veronica Vazquez, 12113 481 Hospitalists D.O. 995.91 493.90 250.00 Office Visit 04/27/2013 10:22a [facility], Veronica Vazquez, 55369 481 Hospitalists D.O. 995.91 493.90 250.00 Office Visit 02/27/2013 9:00a [facility] Jose Manuel Mccracken M.D. 66655 414.02 [facility] 250.60 401.9 272.2 278.01 327.23 424.1 Office Visit 01/01/2013 9:45a [facility] Rao Reddy, 37631 250.60 Services Of Allie Tejeda 357.2 354.0 Office Visit 02/22/2012 8:45a [facility] Jose Manuel Mccracken M.D. 64624 414.02 [employer] 786.50 401.9 Office Visit 01/03/2012 9:45a [facility] Rao Reddy 80071 250.60 Services Of lAlie Tejeda 357.2 Plan of Care Future Appointment(s):03/08/2018 9:00 am - Evonne Mccracken M.D. at [facility] AT [facility]07/09/2018 8:45 am - Rao Reddy M.D. 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
[2018-02-22 15:17] LABS: ABS Basophils 0.1 10^3/ul (0-0.2); ABS Eosinophils 0.3 10^3/ul (0-0.6); ABS Lymphocytes 2.4 10^3/ul (1.0-4.8); ABS Monocytes 0.6 10^3/ul (0-0.8); ABS Neutrophils 4.3 10^3/ul (1.5-7.7); ABS Nucleated RBC 0 10^3/ul; Eosinophil % 3.4 % (0-6); Hematocrit 44 % (42-52); Hemoglobin 14.6 g/dl (14.0-18.0); Lymphocyte % 31.4 % (25-47); Mean Corpuscular HGB Conc 33 g/dl (31-36); Mean Corpuscular Hemoglobin 28 pg (27-31); Mean Corpuscular Volume 83 fL (80-94); Mean Platelet Volume 7.4 fL (7.4-10.4); Nucleated Red Blood Cells % 0; Platelet Count 272 10^3/ul (150-450); Red Blood Count 5.26 10^6/ul (4.00-5.40); Red Cell Distribution Width 17 % (10.5-15); White Blood Count 7.7 10^3/ul (3.5-10.8)
[2018-02-22 15:28] LABS: INR 0.88 (0.77-1.02)
--- NOTE | 2018-02-22 15:32 | RAD ---
HISTORY: headache COMPARISONS: February 14, 2018 TECHNIQUE: Multiple contiguous axial CT scans were obtained of the head without intravenous contrast. FINDINGS: HEMORRHAGE/INFARCT: There is no hemorrhage or acute infarct. MASSES/SHIFT: There is no mass or shift. EXTRA-AXIAL SPACES: There are no extra-axial fluid collections. SULCI AND VENTRICLES: There is mild diffuse and proportional enlargement of the sulci and ventricles. CEREBRUM: There are no focal parenchymal abnormalities. BRAINSTEM: There are no focal parenchymal abnormalities. CEREBELLUM: There are no focal parenchymal abnormalities. VESSELS: The vessels are grossly normal. PARANASAL SINUSES: The paranasal sinuses are clear. ORBITS: The orbits are unremarkable. BONES AND SOFT TISSUE: No bone or soft tissue abnormalities are noted. OTHER: None IMPRESSION: NO ACUTE INTRACRANIAL PATHOLOGY.
--- NOTE | 2018-02-22 15:41 | RAD ---
HISTORY: headache COMPARISONS: February 14, 2018 VIEWS: 5: Frontal dual-energy and lateral views of the chest. FINDINGS: CARDIOMEDIASTINAL SILHOUETTE: The cardiomediastinal silhouette is normal. RADHA: The radha are normal. PLEURA: The costophrenic angles are sharp. No pleural abnormalities are noted. LUNG PARENCHYMA: There is hyperinflation with flattening of the diaphragm and expansion of the AP diameter of the chest. ABDOMEN: The upper abdomen is clear. There is no subphrenic gas. BONES AND SOFT TISSUES: The patient is status post median sternotomy. OTHER: None. IMPRESSION: HYPERINFLATION, CONSISTENT WITH COPD. NO ACTIVE CARDIOPULMONARY DISEASE.
[2018-02-22 15:44] LABS: EGFR Non-African American 81.3 (>60)
[2018-02-22 16:01] LABS: Urine Red Blood Cell Absent (Absent); Urine White Blood Cell Absent (Absent)
[2018-02-22 16:26] LABS: Urine Appearance Clear; Urine Blood Negative (Negative); Urine Color Yellow; Urine Ketones Negative (Negative); Urine Protein Negative (Negative); Urine Specific Gravity 1.002 (1.010-1.030); Urine Urobilinogen Negative (Negative)
[2018-02-22] MEDS ORDERED: NS 0.9% 1000 ML* 1,000 ML IV ONE (16:51)
[2018-02-22] MEDS ORDERED: Ondansetron INJ* 2 MG/ML VIAL IV ONE (16:51)
[2018-02-22] MEDS ORDERED: Meclizine TAB* 12.5 MG PO ONE (16:51)
--- NOTE | 2018-02-22 17:44 | ED ---
Headache - HPI Summary HPI Summary: A 67 y/o male c/o TATE since the morning of 02/22/2018. He had a TATE last week where he felt weak and fell. He currently "feels like the room is spinning". He felt dizzy when trying to sit up; it took him an hour to get out of bed this morning to go to the bathroom. Nausea developed later, he denies LOC. He has a Hx of celiac artery stenosis and emphysema. He is a former smoker who stopped 20 years ago. He denies fever, chills, ear pain, sore throat, blurred vision, double vision, neck pain, CP, SOB, ABD pain, back pain, dysuria, hematuria, blood in the stool, constipation, edema, bruising, and rashes. - History Of Current Complaint Chief Complaint: EDDizziness Stated Complaint: GENERAL ILLNESS Hx Obtained From: Patient Onset/Duration: Sudden Onset Aggravating Factor: Position Change - lifting his head up Associated Signs And Symptoms: Dizziness - felt like room was spinning - Allergies/Home Medications Allergies/Adverse Reactions: Allergies Allergy/AdvReac Type Severity Reaction Status Date / Time atorvastatin Allergy Severe See Comment Verified 02/14/18 13:40 codeine Allergy Unknown Verified 02/14/18 13:40 Reaction Details Penicillins Allergy Unknown Verified 02/14/18 13:40 Reaction Details rosuvastatin [From Crestor] Allergy See Comment Verified 02/14/18 13:40 Sulfa (Sulfonamide Allergy Unknown Verified 02/14/18 13:40 Antibiotics) Reaction Details Home Medications: Home Medications Alirocumab [Praluent Pen] 150 mg SUBCUT Q14D 02/22/18 [History Confirmed ] Cholecalciferol TAB* [Vitamin D TAB*] 400 unit PO DAILY 02/22/18 [History Confirmed 02/22/18] Colchicine* [Colcrys*] 0.6 mg PO DAILY PRN 02/22/18 [History Confirmed 02/22/18] Cyanocobalamin TAB* [Vitamin B12 TAB*] 1,000 mcg PO DAILY 02/22/18 [History Confirmed 02/22/18] Esomeprazole(NF) [Nexium(NF)] 40 mg PO DAILY 02/22/18 [History Confirmed ] Flaxseed Oil [[place]-3 Flaxseed Oil] 1,000 mg PO DAILY 02/22/18 [History Confirmed 02/22/18] Pregabalin CAP(*) [Lyrica CAP(*)] 100 mg PO BID 02/22/18 [History Confirmed 06/10] Pregabalin CAP(*) [Lyrica CAP(*)] 200 mg PO BID 02/22/18 [History Confirmed 06/10] Tiotropium CAP.INH* [Spiriva CAP.INH*] 1 cap.inh INH DAILY 02/22/18 [History Confirmed 02/22/18] PMH/Surg Hx/FS Hx/Imm Hx Endocrine/Hematology History: Reports: Hx Diabetes - ON ORAL MEDICATION AND INSULIN Denies: Hx Thyroid Disease Cardiovascular History: Reports: Hx Angina, Hx Cardiomegaly, Hx Coronary Artery Disease - HISTORY OF BYPASS-1998 DONE AFTER 2 ANGIOGRAMS, Hx Hypercholesterolemia, Hx Hypertension - ON MEDICATION FOR, Hx Valvular Heart Disease - AORTIC VALVE DISORDER, ISCHEMIC CARDIOMYOPATHY Denies: Hx Congestive Heart Failure, Hx Pacemaker/ICD, Hx Peripheral Vascular Disease, Other Cardiovascular Problems/Disorders Respiratory History: Reports: Hx Asthma - ROUTINE AND PRN INHALERS, Hx Chronic Bronchitis, Hx Seasonal Allergies, Hx Sleep Apnea - cpap Denies: Hx Chronic Obstructive Pulmonary Disease (COPD), Other Respiratory Problems/Disorders GI History: Reports: Hx Diverticulosis, Hx Gastroesophageal Reflux Disease - ON MEDICATION FOR, Hx Irritable Bowel, Hx Ulcer - AROUND AGE 19, Other GI Disorders - umbilical hernia repair 2016 History: Denies: Hx Renal Disease, Other Problems/Disorders Musculoskeletal History: Reports: Hx Arthritis - tennis elbow, Hx Bursitis - shoulder in the past, Hx Tendonitis - tennis elbow Denies: Hx Osteoporosis, Other Musculoskeletal History Sensory History: Reports: Hx Contacts or Glasses Denies: Hx Cataracts, Hx Glaucoma, Hx Deafness, Hx Hearing Aid Opthamlomology History: Reports: Hx Contacts or Glasses Denies: Hx Cataracts, Hx Glaucoma Neurological History: Reports: Hx Migraine - CONTROL WITH MED, Hx Nerve Disease - DIABETIC NEUROPATHY, POST PUMP SYNDROME, Other Neuro Impairments/Disorders - DIABETIC NEUROPATHY Denies: Hx Headaches Psychiatric History: Reports: Hx Anxiety - ON MEDICATION FOR, Hx Depression, Hx Substance Abuse - Surgical History Surgery Procedure, Year, and Place: 1995-discectomy AND FUSION. TRIPLE BYPASS- 1998. tonsils REMOVED A CHILD. hemorrhoids-20 + YEARS AGO Hx Anesthesia Reactions: No Infectious Disease History: No Infectious Disease History: Reports: Hx Shingles - 2007 Denies: Hx Clostridium Difficile, Hx Hepatitis, Hx Human Immunodeficiency Virus (HIV), Hx of Known/Suspected MRSA, Hx Tuberculosis, Hx Known/Suspected VRE , Hx Known/Suspected VRSA, History Other Infectious Disease, Traveled Outside the [place] in Last 30 Days - Family History Known Family History: Positive: Cardiac Disease - Social History Alcohol Use: Rare Alcohol Amount: WEEKENDS Hx Substance Use: No Substance Use Type: Reports: None Hx Tobacco Use: Yes Smoking Status (MU): Former Smoker Type: Cigarettes Amount Used/How Often: 1/2- 2 PPD X 33 YEARS Length of Time of Smoking/Using Tobacco: 32 YEARS Have You Smoked in the Last Year: No Review of Systems Negative: Fever, Chills Eyes: Negative - double vision Negative: Blurred Vision ENT: Negative - Throat pain Negative: Sore Throat, Ear Ache Negative: Chest Pain Negative: Shortness Of Breath Gastrointestinal: Negative - constipation, blood in stool Positive: Nausea. Negative: Abdominal Pain Negative: dysuria, hematuria Negative: Myalgia - back pain, Edema Negative: Rash, Bruising Neurological: Other - Positive: dizzy "feels like the room is spinning" Positive: Headache. Negative: Syncope All Other Systems Reviewed And Are Negative: No Physical Exam - Summary Physical Exam Summary: Appearance: Alert, conversive, nontoxic appearing Skin: Warm, dry, no mottling, no rashes, no contusions HEENT: EOMI, PERRL, moist mucous membranes Neck: No masses on the neck, supple Respiratory: Clear to auscultation, breath sounds present, no rales, no rhonchi , no wheezes Cardiovascular: RRR, pulses are symmetrical in both lower and upper extremities Abdomen: Soft, non-tender Bowel Sounds: Present Musculoskeletal: No CVA tenderness, no obvious deformity, moving all extremities in a grossly normal manner Neurological: A&Ox3, CN II-XII Intact, moving all extremities symmetrically Psychiatric: Normal affect and mood GCS: 15 Triage Information Reviewed: Yes Vital Signs On Initial Exam: Initial Vitals Temp Pulse Resp BP Pulse Ox 97.7 F 88 20 130/79 93 02/22/18 13:41 02/22/18 13:41 02/22/18 13:41 02/22/18 13:41 02/22/18 13:41 Vital Signs Reviewed: Yes Diagnostics - Vital Signs Vital Signs Temp Pulse Resp BP Pulse Ox 02/22/18 13:41 97.7 F 88 20 130/79 93 - Laboratory Lab Results: Lab Results 02/22/18 02/22/18 02/22/18 Range/Units 15:09 15:09 15:09 WBC 7.7 (3.5-10.8) 10^3/ul RBC 5.26 (4.00-5.40) 10^6/ul Hgb 14.6 (14.0-18.0) g/dl Hct 44 (42-52) % MCV 83 (80-94) fL MCH 28 (27-31) pg MCHC 33 (31-36) g/dl RDW 17 H (10.5-15) % Plt Count 272 (150-450) 10^3/ul MPV 7.4 (7.4-10.4) fL Neut % (Auto) 56.1 (38-83) % Lymph % (Auto) 31.4 (25-47) % Sullivan % (Auto) 8.3 H (0-7) % Eos % (Auto) 3.4 (0-6) % Baso % (Auto) 0.8 (0-2) % Absolute Neuts (auto) 4.3 (1.5-7.7) 10^3/ul Absolute Lymphs (auto) 2.4 (1.0-4.8) 10^3/ul Absolute Monos (auto) 0.6 (0-0.8) 10^3/ul Absolute Eos (auto) 0.3 (0-0.6) 10^3/ul Absolute Basos (auto) 0.1 (0-0.2) 10^3/ul Absolute Nucleated RBC 0 10^3/ul Nucleated RBC % 0 INR (Anticoag Therapy) 0.88 (0.77-1.02) APTT 27.6 (26.0-36.3) seconds Sodium 140 (135-145) mmol/L Potassium 3.7 (3.5-5.0) mmol/L Chloride 104 (101-111) mmol/L Carbon Dioxide 29 (22-32) mmol/L Anion Gap 7 (2-11) mmol/L BUN 15 (6-24) mg/dL Creatinine 0.93 (0.67-1.17) mg/dL Est GFR ( Amer) 98.4 (>60) Est GFR (Non-Af Amer) 81.3 (>60) BUN/Creatinine Ratio 16.1 (8-20) Glucose 138 H (70-100) mg/dL Calcium 9.0 (8.6-10.3) mg/dL Magnesium 2.3 (1.9-2.7) mg/dL Total Bilirubin 0.50 (0.2-1.0) mg/dL AST 18 (13-39) U/L ALT 25 (7-52) U/L Alkaline Phosphatase 59 (34-104) U/L Troponin I 0.00 (<0.04) ng/mL B-Natriuretic Peptide (<=100) pg/mL Total Protein 6.6 (6.4-8.9) g/dL Albumin 3.9 (3.2-5.2) g/dL Globulin 2.7 (2-4) g/dL Albumin/Globulin Ratio 1.4 (1-3) TSH 1.37 (0.34-5.60) mcIU/mL Urine Color Urine Appearance Urine pH (5-9) Ur Specific Edgar (1.010-1.030) Urine Protein (Negative) Urine Ketones (Negative) Urine Blood (Negative) Urine Nitrate (Negative) Urine Bilirubin (Negative) Urine Urobilinogen (Negative) Ur Leukocyte Esterase (Negative) Urine WBC (Auto) (Absent) Urine RBC (Auto) (Absent) Urine Bacteria (Absent) Urine Glucose (Negative) Urine Ascorbic Acid 02/22/18 02/22/18 Range/Units 15:09 15:41 WBC (3.5-10.8) 10^3/ul RBC (4.00-5.40) 10^6/ul Hgb (14.0-18.0) g/dl Hct (42-52) % MCV (80-94) fL MCH (27-31) pg MCHC (31-36) g/dl RDW (10.5-15) % Plt Count (150-450) 10^3/ul MPV (7.4-10.4) fL Neut % (Auto) (38-83) % Lymph % (Auto) (25-47) % Sullivan % (Auto) (0-7) % Eos % (Auto) (0-6) % Baso % (Auto) (0-2) % Absolute Neuts (auto) (1.5-7.7) 10^3/ul Absolute Lymphs (auto) (1.0-4.8) 10^3/ul Absolute Monos (auto) (0-0.8) 10^3/ul Absolute Eos (auto) (0-0.6) 10^3/ul Absolute Basos (auto) (0-0.2) 10^3/ul Absolute Nucleated RBC 10^3/ul Nucleated RBC % INR (Anticoag Therapy) (0.77-1.02) APTT (26.0-36.3) seconds Sodium (135-145) mmol/L Potassium (3.5-5.0) mmol/L Chloride (101-111) mmol/L Carbon Dioxide (22-32) mmol/L Anion Gap (2-11) mmol/L BUN (6-24) mg/dL Creatinine (0.67-1.17) mg/dL Est GFR ( Amer) (>60) Est GFR (Non-Af Amer) (>60) BUN/Creatinine Ratio (8-20) Glucose (70-100) mg/dL Calcium (8.6-10.3) mg/dL Magnesium (1.9-2.7) mg/dL Total Bilirubin (0.2-1.0) mg/dL AST (13-39) U/L ALT (7-52) U/L Alkaline Phosphatase (34-104) U/L Troponin I (<0.04) ng/mL B-Natriuretic Peptide 16 (<=100) pg/mL Total Protein (6.4-8.9) g/dL Albumin (3.2-5.2) g/dL Globulin (2-4) g/dL Albumin/Globulin Ratio (1-3) TSH (0.34-5.60) mcIU/mL Urine Color Yellow Urine Appearance Clear Urine pH 6.0 (5-9) Ur Specific Edgar 1.002 L (1.010-1.030) Urine Protein Negative (Negative) Urine Ketones Negative (Negative) Urine Blood Negative (Negative) Urine Nitrate Negative (Negative) Urine Bilirubin Negative (Negative) Urine Urobilinogen Negative (Negative) Ur Leukocyte Esterase Negative (Negative) Urine WBC (Auto) Absent (Absent) Urine RBC (Auto) Absent (Absent) Urine Bacteria Absent (Absent) Urine Glucose Negative (Negative) Urine Ascorbic Acid Not Reportable Result Diagrams: 02/23/18 07:29 02/23/18 07:29 Lab Statement: Any lab studies that have been ordered have been reviewed, and results considered in the medical decision making process. - Radiology CXR Radiology Interpretation Completed By: Radiologist - Hyperinflation, consistent with COPD. No active cardiopulmonary disease. This report has been reviewed by the ED physician. - CT Brain CT Interpretation Completed By: Radiologist - No acute intracranial pathology. This report has been reviewed by the ED physician. Brain MRI CT Interpretation Completed By: Radiologist - No acute findings on MR brain. This report has been reviewed by the ED physician. - EKG 14:02 Cardiac Rate: NL - 85 bpm EKG Rhythm: Sinus Rhythm Summary of EKG Findings: no STEMI, normal QRS, normal QTc, normal axis, normal ST/T wave 14:51 Cardiac Rate: NL - 82 bpm EKG Rhythm: Sinus Rhythm Summary of EKG Findings: proloned QRS, nonspecific T abnormalities. Re-Evaluation - Re-Evaluation First Eval Re-Evaluation Time: 19:20 Change: Improved Comment: Pt still feels dizzy and a TATE but less nauseous, upon re-eval no signs of nystagmus. Pt claims he just saw Dr. Sepulveda for his ear and it was fine. Headache Course/Dx - Course Course Of Treatment: A 67 y/o male c/o TATE since the morning of 02/22/2018. Pt was given Meclizine and Zofran for Nausea. Upon re-eval the pt still feels dizzy and will be admitted to Dr. Rausch. Dx: vertigo. - Diagnoses Provider Diagnoses: Vertigo - Physician Notifications Discussed Care Of Patient With: Dolly Rausch Time Discussed With Above Provider: 22:00 Instructed by Provider To: Admit As Inpatient Discharge - Sign-Out/Discharge Documenting (check all that apply): Patient Departure - Admit - Discharge Plan Condition: Improved Disposition: ADMITTED TO [facility] - Billing Disposition and Condition Condition: IMPROVED Disposition: Admitted to [facility] - Attestation Statements Document Initiated by Scribe: Yes Documenting Scribe: Robby Royal Provider For Whom Scribe is Documenting (Include Credential): Natalya Cotton MD Scribe Attestation: I, Robby Royal, scribed for Natalya Cotton MD on 02/24/18 at 0907. Scribe Documentation Reviewed: Yes Provider Attestation: The documentation as recorded by the scribe, Robby Royal accurately reflects the service I personally performed and the decisions made by me, Natalya Cotton MD
[2018-02-22] MEDS ORDERED: Diazepam TAB(*) 5 MG PO ONE (19:37)
--- NOTE | 2018-02-22 21:11 | RAD ---
EXAM: MR Head Without Intravenous Contrast CLINICAL HISTORY: 67 years old, male; Signs and symptoms; Dizziness; Patient HX: Pt woke up dizzy and could not get out of bed. Pt also has a headache and nausea; Additional info: Vertigo. Pt has permanent dental work that is causing an artifact in the images TECHNIQUE: Magnetic resonance images of the head/brain without intravenous contrast in multiple planes. COMPARISON: BRAIN WO CT BRAIN WO 02/22/2018 3:15 PM FINDINGS: Brain: Few scattered nonspecific T2/FLAIR hyperintensities of the periventricular and deep subcortical white matter, most likely secondary to chronic small vessel ischemic change. No intracranial hemorrhage or extra-axial fluid collection. No evidence of mass effect or midline shift. No restricted diffusion to suggest acute infarct. Ventricles: Prominence of the ventricles and sulci. This is most likely attributed to parenchymal volume loss. Bones/joints: Unremarkable. Sinuses: Unremarkable as visualized. No acute sinusitis. Mastoid air cells: Unremarkable as visualized. No mastoid effusion. Orbits: Unremarkable as visualized. IMPRESSION: 1. No acute findings on MR Brain. 2. Other chronic findings, as above. To contact [facility] with a general question: Operations Center - [phone] For direct physician to physician contact: Physician Hotline - [phone] [facility] ([facility] Facility ID #[id number])
[2018-02-22] MEDS ORDERED: Acetaminophen TAB* 325 MG PO PRN (22:06)
[2018-02-22] MEDS ORDERED: NS 0.9% 1000 ML* 1,000 ML IV SCH (22:15)
[2018-02-22] MEDS ORDERED: oxyCODONE/Acetamin 5/325 MG* TAB PO PRN (22:24)
[2018-02-22] MEDS ORDERED: Colchicine* 0.6 MG TAB PO PRN (22:24)
[2018-02-22] MEDS ORDERED: Albuterol HFA INHALER* 8 gm MDI INH PRN (22:24)
[2018-02-22] MEDS ORDERED: Cyclobenzaprine TAB* 10 MG PO PRN (22:24)
[2018-02-22] MEDS ORDERED: Dextrose 50% Syringe 50 ML* 25 GM/50 ML SYRINGE IV PUSH PRN (22:29)
[2018-02-22] MEDS ORDERED: Meclizine TAB* 12.5 MG PO PRN (22:44)
[2018-02-22] MEDS ORDERED: Insulin GLARGINE(*) 1 UNITS UNIT SUBCUT SCH (23:00)
[2018-02-22] MEDS ORDERED: Insulin GLARGINE(*) 1 UNITS UNIT ONE (23:08)
--- NOTE | 2018-02-23 02:46 | HP ---
CC: Dr. Javier; Dr. Jimenez, Dr. Mccracken; Dr. Saenz * HISTORY AND PHYSICAL: DATE OF ADMISSION: 02/22/18 PRIMARY CARE PROVIDER: Dr. Javier. CHIEF COMPLAINT: Dizziness. HISTORY OF PRESENT ILLNESS: Jim Worthy is a 67-year-old male who was just hospitalized at our facility from 02/14/18 to 02/16/18. He was hospitalized after a fall and lower back pain. He was at that point noted to be hypoxemic. It was thought that the lightheadedness that precipitated the fall was due to hypoxemia. He was discharged to home on oxygen at 2 L. 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 Also, within the past month and a half, he had a stress echocardiogram that showed no evidence of ischemia as per medical records obtained from Dr. Mccracken's office. The patient stated that after his hospital stay on 02/16/18 and after discharge he felt well. He, in fact, was not lightheaded during his hospital stay. He was doing reasonably well until the morning of 02/22/18 when he tried to get up from bed and when he started to try to move his head, he felt very dizzy. He stated that he felt like the room was spinning. Someone was able to stumble over to brush his teeth and able to eat a banana, although he complained of feeling dizzy. He also felt nauseated, but he did not throw up. His gait was very unsteady. He denies any headache or any pain or shortness of breath per se. He spent several hours in the emergency department. His recent MRI was obtained and show no new or acute changes and no CVA. When orthostatic blood pressures were measured during my evaluation, patient's systolic blood pressures dropped from 129/82 to 96/70 with the same heart rate in the 70s. When I spoke with the patient and the patient's about the diagnosis of orthostatic hypotension and likely dizziness due to that, the patient's did not seem to agree with my diagnosis. The patient also has nystagmus when looking towards the left and it is possible that he has a combination of benign positional vertigo and orthostatic hypotension. He is going to be placed on overnight observation with the above-mentioned diagnosis. PAST MEDICAL HISTORY: 1. Diabetes types 2. 2. History of coronary artery disease. 3. Obstructive sleep apnea. 4. History of moderate aortic stenosis. 5. Hypertension. 6. Erectile dysfunction. 7. Hyperlipidemia. 8. Cardiomyopathy with EF of 55%. 9. Neuropathy. 10. Asthma. 11. Rhinitis. 12. History of TIA. 13. Anxiety. 14. Depression. 15. Gastroesophageal reflux disease. 16. History of COPD, oxygen dependent at 2 L, that began a week ago. 17. History of status post coronary artery bypass grafting. 18. Partial colectomy. 19. C5 to C6 as well as C6 to C7 discectomies. 20. Carpal tunnel repair. MEDICATIONS: Medications at home that as per the patient's were basically unchanged for these several months, include: 1. Oxycodone and acetaminophen on a p.r.n. basis. 2. Lidocaine patch 5% 1 patch transdermally daily. 3. Effexor 10 mg t.i.d. p.r.n. 4. Prednisone, the patient was placed, post his hospital stay, on a taper, currently at 20 mg daily. 5. Colchicine 0.6 mg daily p.r.n. 6. MiraLax 17 g b.i.d. 7. Colace 100 mg b.i.d. 8. Restasis eye drops 0.05% 2 drops to both eyes daily. 9. Vitamin B12 1000 mcg daily. 10. Torsemide 10 mg q.a.m. 11. Prasugrel 10 mg q.a.m. 12. Nitroglycerin tablet on a p.r.n. basis. 13. Lisinopril 15 mg q.p.m. 14. Aspirin 81 mg daily. 15. Albuterol inhaler on a p.r.n. basis. 16. Spiriva 1 inhalation daily. 17. Insulin glargine 60 units at bedtime. 18. Symbicort 160/4.5 two puffs inhalation b.i.d. 19. Acetaminophen on a p.r.n. basis. 20. Flaxseed oil 1 tablet daily. 23. Vitamin D3 400 units daily. 24. Metformin 1000 mg b.i.d. 25. Mag ox 400 mg b.i.d. 26. Exenatide microspheres 2 mg subcutaneously weekly. 27. Nexium 40 mg daily. 28. Clarinex 5 mg daily. 29. Cymbalta 60 mg q.p.m. 30. Lyrica 200 mg b.i.d. 31. Amlodipine 5 mg b.i.d. 32. Lyrica 100 mg b.i.d. 33. Metoprolol succinate 25 mg q.p.m. and 50 mg q.a.m. 34. Praluent 150 mg subcutaneously every 14 days. ALLERGIES: Include LIPITOR, CODEINE, PENICILLIN, CRESTOR, and SULFA. FAMILY HISTORY: Positive for mother dying from complications of polio and father with history of heart disease and carotid artery disease. SOCIAL HISTORY: The patient has history of smoking up to 1998 when he quit. He drinks alcohol rarely. He denies any drug use. His surrogate decision maker is his . REVIEW OF SYSTEMS: Please see history of present illness. The patient's stated that the patient's weight has been checked on a daily basis and that had not been changed. He had not been using the Flexeril and Percocet recently as his back pain after the fall is well controlled. All the remaining 12 systems were reviewed with the patient and were otherwise negative. Please also note that the symptoms mentioned in history of present illness are improved with time by now. PHYSICAL EXAMINATION GENERAL: The patient is a pleasant 67-year-old male, who is in no acute distress. Alert and oriented x3. VITAL SIGNS: Blood pressure of 118/77, heart rate of 78 and regular, respiratory rate 22, oxygen saturation 88% on room air, temperature of 97.7. HEENT: Head: Atraumatic, normocephalic. Eyes: Pupils are equal and reactive to light and accommodation. Oropharynx is clear. Mucosa moist. NECK: Supple. No JVD. No bruit bilaterally. RESPIRATORY: Clear to auscultation bilaterally. CARDIOVASCULAR: Regular rate and rhythm. No murmur. ABDOMEN: Soft, nontender. Bowel sounds are present in all 4 quadrants. EXTREMITIES: There is no edema. Pulses are +2 bilaterally. No clubbing or cyanosis. NEUROLOGIC: The patient has mild nystagmus when looking to the left. He denies any diplopia when doing so. Cranial nerves II through XII grossly intact. Motor strength is 5/5 bilaterally. He has wide but steady gait. His [id number] is unremarkable bilaterally. His [id number] is not dissymmetric bilaterally. His sensation is grossly intact. SKIN: Evaluation of the skin, no rashes noted. PSYCHIATRIC: Oriented x3 with no evidence of anxiety or depression. Please note that the patient's orthostatic blood pressures where: When lying down, blood pressure of 128/82 with a heart rate of 79; when sitting up, blood pressure of 96/63 with heart rate of 78. His standing pressures were basically the same at 96/62 with the heart rate in the 70s. Please also note that the patient was symptomatic of dizziness and lightheadedness when he was sitting up and standing up. DIAGNOSTIC STUDIES/LAB DATA: White blood cell count of 7.7, hemoglobin of 14.6 , hematocrit of 44, and platelets of 272. Sodium 140, potassium 3.7, chloride 104, carbon dioxide 29, BUN 15, creatinine 0.93. Liver functions unremarkable. Troponin of 0. TSH of 1.37. Urinalysis showed specific gravity of 1.002, otherwise unremarkable. The patient's brain MRI obtained in the ED prior to admission, impression: "No acute findings on MRI brain. Other chronic findings as above." The patient's EKG showed normal sinus rhythm with a heart rate of 82 beats per minute with flattening of T-wave in V5 and mildly negative T-wave in lead V6, otherwise unremarkable. ASSESSMENT AND PLAN: 1. Dizziness and lightheadedness. At this point, the patient definitely has orthostatic hypotension and symptoms of that when he stands up. He also has nystagmus and he appears to also be having vertigo symptoms when moving his head. I suspect that his dehydration could have contributed to development of benign positional vertigo. At this point, the plan is going to be for the patient to continue intravenous hydration, gentle, due to his history of congestive heart failure and moderate aortic stenosis. I will hold the patient' s torsemide as well as lisinopril and Norvasc. The patient is going to be observed on telemetry monitored bed and due to his history of dizziness, I will place him on neuro checks every 2 hours. His aspirin and Effient are going to be continued. 2. In regard to the patient's chronic obstructive pulmonary disease, it does not appear to be an exacerbation. The patient has history of being on prednisone with a taper and I am going to continue him at 10 mg daily during the hospital stay. 3. For his history of coronary artery disease, the patient currently is asymptomatic. He had recent cardiac stress test, which was negative. We will continue his cardiac medications including beta fela, aspirin, and Effient as mentioned above. 4. For gastroesophageal reflux disease, his Nexium is going to be exchanged with Prilosec, which on formulary in our hospital. 5. For DVT prophylaxis, the patient is going to be placed on heparin subcutaneously. 6. For the patient's code status, the patient's code status is full and his surrogate decision maker is . TIME SPENT: Approximately 72 minutes was spent on admission of this patient, more than half that time was spent [id number] with the patient during the interview and physical exam. [id number]/[facility] #: [id number] COLIN
[2018-02-23] MEDS: Heparin VIAL(*) 5000 UNITS/ML VIAL (FIVE THOUSAND) SUBCUT SCH ×2 (05:42→14:08)
[2018-02-23] MEDS ORDERED: Omeprazole CAP* 20 MG PO SCH (06:00)
[2018-02-23 07:39] LABS: ABS Basophils 0.1 10^3/ul (0-0.2); ABS Eosinophils 0.3 10^3/ul (0-0.6); ABS Monocytes 0.6 10^3/ul (0-0.8); ABS Neutrophils 3.4 10^3/ul (1.5-7.7); ABS Nucleated RBC 0 10^3/ul; Eosinophil % 4.2 % (0-6); Hematocrit 42 % (42-52); Hemoglobin 13.8 g/dl (14.0-18.0); Lymphocyte % 31.4 % (25-47); Mean Corpuscular HGB Conc 33 g/dl (31-36); Mean Corpuscular Hemoglobin 28 pg (27-31); Mean Corpuscular Volume 84 fL (80-94); Mean Platelet Volume 7.4 fL (7.4-10.4); Nucleated Red Blood Cells % 0.1; Platelet Count 232 10^3/ul (150-450); Red Blood Count 5.02 10^6/ul (4.00-5.40); Red Cell Distribution Width 17 % (10.5-15); White Blood Count 6.3 10^3/ul (3.5-10.8)
[2018-02-23 07:54] LABS: EGFR Non-African American 79.3 (>60)
[2018-02-23] MEDS: Insulin LISPRO* 1 UNITS UNIT SUBCUT SCH ×2 (08:45→11:44)
[2018-02-23] MEDS ORDERED: Magnesium Oxide TAB* 400 MG PO SCH (09:00)
[2018-02-23] MEDS ORDERED: Metoprolol Succinate XL TAB* 50 MG PO SCH (09:00)
[2018-02-23] MEDS ORDERED: predniSONE TAB* 10 MG PO SCH (09:00)
[2018-02-23] MEDS ORDERED: Cyanocobalamin TAB* 500 MCG PO SCH (09:00)
[2018-02-23] MEDS ORDERED: Pregabalin CAP(*) 300 MG PO SCH (09:00)
[2018-02-23] MEDS ORDERED: Aspirin EC TAB* 81 MG TAB.EC PO SCH (09:00)
[2018-02-23] MEDS ORDERED: DULoxetine DR CAP* 60 MG CAP.DR PO SCH (09:00)
[2018-02-23] MEDS ORDERED: Diazepam TAB(*) 5 MG PO ONE (09:00)
[2018-02-23] MEDS ORDERED: Docusate CAP* 100 MG PO SCH (09:00)
[2018-02-23] MEDS ORDERED: Tiotropium CAP.INH* CAP.INH/18 MCG (USE ORDER SET !) INH SCH (09:00)
[2018-02-23] MEDS ORDERED: Ondansetron ODT TAB* 4 MG SL PRN (09:00)
[2018-02-23] MEDS ORDERED: Polyethylene Glycol 3350* 17 GM PACKET PO SCH (09:00)
[2018-02-23] MEDS ORDERED: Lidocaine PATCH 5%* 1 PATCH TRANSDERM SCH (09:00)
[2018-02-23] MEDS ORDERED: Pregabalin CAP(*) 100 MG PO SCH (09:00)
[2018-02-23] MEDS ORDERED: Ondansetron TAB* 4 MG ONE (09:39)
[2018-02-23] MEDS ORDERED: Ondansetron ODT TAB* 4 MG ONE (09:41)
[2018-02-23] MEDS ORDERED: Diazepam TAB(*) 5 MG ONE (09:44)
[2018-02-23 11:44] VITALS: BP 115/50
[2018-02-23] MEDS ORDERED: Metoprolol Succinate XL TAB* 25 MG PO SCH (18:00)
[2018-02-23] MEDS ORDERED: Lidocaine Patch REMOVE* 1 NOTE MISC PATCH OFF SCH (21:00)
--- NOTE | 2018-02-24 04:32 | DS ---
DISCHARGE SUMMARY: DATE OF ADMISSION: 02/22/18 DATE OF DISCHARGE: 02/23/18 ADMITTING PROVIDER: Dolly Rausch MD ATTENDING PHYSICIAN ON THE DAY OF DISCHARGE: Prasanna Conti MD PRIMARY CARE PROVIDER: Dr. Javier. OUTPATIENT NEUROLOGIST: Dr. Reddy. OUTPATIENT PILL MACHINE OPERATOR: Dr. Mccracken. OUTPATIENT CONSULTANTS INTERN: Dr. Jimenez. CHIEF COMPLAINT: Dizziness with room spinning, nausea. PRINCIPAL DIAGNOSIS: Orthostatic hypotension; vertigo; history of autonomic dysfunction in the setting of long-standing diabetes mellitus. HISTORY OF PRESENT ILLNESS AND HOSPITAL COURSE: Jim Worthy is a 67-year-old male with extensive past medical history including insulin-dependent diabetes mellitus type 2; coronary artery disease, status post CABG in 1998 and subsequent stents; moderate aortic stenosis with aortic valve area 1.3 to 1.5; obstructive sleep apnea, using CPAP; hypertension; erectile dysfunction; hyperlipidemia; diastolic congestive heart failure; asthma and recent diagnosis of COPD last week, he was discharged with supplemental oxygen; history of TIA; anxiety; depression; GERD; partial colectomy; C5-6 and C6-7 diskectomies and carpal tunnel repair, who has had extensive medical evaluation over the last month including an exercise stress test which was reportedly normal on 02/08/18 and colonoscopy. He has fallen twice including on 02/14/18, for which he was admitted and was eventually found to have some mild hypoxia and was newly diagnosed with COPD and discharged on 2 L with exertion and at night to be used with his CPAP. He had a CTA of his abdomen which demonstrated high-grade stenosis of the celiac artery, which when compared to prior study of 2009 was likely present there as well and 50 to 69% stenosis of his left carotid artery. He followed up with Dr. Javier on 02/19/18 and was feeling relatively well , but the morning of admission, 02/22/18, he tried to get up from bed and felt very dizzy like the room was spinning. Please see H and P of Dr. Dolly Rausch for full details. He has had nausea, but did not vomit. His gait was very unsteady. He denied any headaches or shortness of breath. He was referred to hospitalist service for further workup. A brain MRI was obtained which showed no acute findings, similarly with a noncontrast CT of the head. Dr. Rausch of hospitalist service found him to have orthostatic hypotension in the emergency room with a drop between lying of 129/82 to sitting and standing of 96/70 and 96/62 respectively and he was given 1 L of fluid and his torsemide was held. He later developed a headache which was relieved by Valium and some of his symptoms were improving. He was started on meclizine at that time. He was also noticed to have a mild nystagmus when looking to the left in the ED ( of note, he had nystagmus looking to the right on hospital day #2). He was admitted under observation status. By the next morning, he still had some room spinning and dizziness, but these symptoms overall had improved. [place]-Hallpike maneuver was tested, but inconclusive. No nystagmus was noted at downward portion on either side or coming up when looking to the left, but he did get dizzy and his eyes completely closed when his head was looking to the right while coming up and he opted to not repeat that test for further evaluation given that he has a followup with [facility] upcoming Sunday where they can pursue further examination and vestibular training if indicated. He had a negative head thrust test, but as mentioned, some mild nystagmus when looking to the right. He was considered stable for discharge with temporary symptomatic control with antihistamine, meclizine and benzodiazepine, Valium, along with the Zofran p.r.n., a few tabs of these. Otherwise, his workup was reassuring. He did have a specific gravity of 1.002 on his urine. He had possible dehydration. He is being encouraged to follow up with Dr. Javier, Dr. Reddy, and Dr. Mccracken along with his other providers. Of note, he had also had an echo last week, showed a ejection fraction of 55% to 60% with diastolic dysfunction and an aortic valve area of 1.3 or 1.5 depending on the method. He denied any chest pain or shortness of breath. He attested that he his not 100% sure that he needs the oxygen during the day or even with exertion; he frequently has been satting between 93 and 96 % on room air at home. DISCHARGE MEDICATIONS: Include: 1. Albuterol 2 puffs inhaled q.4 hours p.r.n. 2. Aspirin 81 mg daily. 3. Colchicine 0.6 mg p.o. daily p.r.n. 4. Cyanocobalamin 1000 mcg p.o. daily. 5. Flexeril 10 mg p.o. t.i.d. p.r.n. 6. Docusate 100 mg p.o. b.i.d. 7. Cymbalta 60 mg p.o. q.a.m. 8. Lidocaine patch 1 daily. 9. Magnesium oxide 400 mg p.o. b.i.d. 10. Metoprolol succinate 25 mg p.o. q.p.m. and 50 mg p.o. q.a.m. 11. Zofran 4 mg sublingual q.6 hours ODT tabs p.r.n. (new for 15 tabs). 12. MiraLAX 17 g p.o. b.i.d. 13. Lyrica 100 mg p.o. b.i.d. 14. Spiriva 1 capsule inhaled daily. 15. Tylenol 1000 mg p.o. q.8 hours p.r.n. 16. Praluent (alirocumab) 150 mg subcutaneous every 14 days. 17. Amlodipine 5 mg b.i.d. 18. Symbicort 2 puffs inhaled b.i.d. 19. Cholecalciferol 400 units p.o. daily. 20. Restasis 2 drops both eyes daily. 21. Clarinex 5 mg p.o. daily. 22. Valium 5 mg p.o. q.12 hours p.r.n. 8 tabs (new). 23. Nexium 40 mg p.o. daily. 24. Bydureon 2 mg subcutaneous weekly. 25. Flaxseed oil 1000 mg p.o. daily. 26. Lantus insulin 60 units subcutaneous at bedtime. 27. Lisinopril 15 mg p.o. q.p.m. 28. Meclizine 25 mg p.o. q.8 hours p.r.n. for 10 tabs (new). 29. Metformin 1000 mg p.o. b.i.d. 30. Nitroglycerin 0.4 mg sublingual q.5 minutes p.r.n. 31. Torsemide 10 mg p.o. q.a.m. (he was asked to hold this for 3 days). He was also discontinued on his prednisone 10 mg daily and the Percocet, especially while taking the Valium. He says his back pain is much better now. DISCHARGE DIET: Heart healthy, carbohydrate consistent. FOLLOWUP: Please follow up with [facility] on Sunday , 02/27/18, Dr. Javier within the next week, Dr. Reddy also within the next 2 weeks if symptoms are not improving from the vertigo, and Dr. Evonne Mccracken within the next month or if there are questions about his volume status. He notably attests that he drinks approximately 2.1 L of water, 3 to 4 cups of coffee and probably 700 mL of cola each day and I had talked with him about trying to get a sensible fluid regimen and combine with his diuretics to control his diastolic heart failure. He is in the process of losing weight and his dry weight is seemingly a moving target and will need close followup with all his providers. TIME SPENT: Time spent on discharge 45 minutes. [id number]/[facility] #: [id number] COLIN
== END 2018-02-23 14:20 | disposition home or self-care (01) ==
LOC: ED 13:38 → MED 22:06
PROVIDERS: ADMIT Internal Medicine; ATTEND Internal Medicine
DX: I95.1 Orthostatic hypotension (principal); R42 Dizziness and giddiness; E11.9 Type 2 diabetes mellitus without complications; I25.10 Atherosclerotic heart disease of native coronary artery without angina pectoris; Z79.4 Long term (current) use of insulin; Z95.5 Presence of coronary angioplasty implant and graft; Z86.73 Personal history of transient ischemic attack (TIA), and cerebral infarction without residual deficits; E78.5 Hyperlipidemia, unspecified; N52.9 Male erectile dysfunction, unspecified; Z79.82 Long term (current) use of aspirin
CPT/HCPCS: 36415; 70450; 70551; 71046; 80048; 80053; 81003; 83735; 83880; 84443; 84484; 85025; 85610; 85730; 93005; 94640; 94660; 96361; 96374; 99284; A9270-GY; G0378; J2405

== ENCOUNTER 2022-01-10 06:59 | Observation (INO) ==
[~2022-01-10 06:59] MED LIST changes: -Buffered Lidocaine 0.9% SYRIN* 5 ML/SYR SYRINGE INTRADERM ONE; -Buffered Lidocaine 0.9% SYRIN* 5 ML/SYR SYRINGE ONE; +Buffered Lidocaine 1% SYRIN 1 ml INTRADERM ONE; -EPHEDrine (Pressors)* 50 MG/ML VIAL ONE; -Famotidine IV* 10 MG/ML 2 ML (20 mg) IV ONE; -Famotidine IV* 10 MG/ML 2 ML (20 mg) ONE; +HYDROcodone/ACETAMIN 5/325 mg TAB PO PRN; -KETAMINE HCL* 50 MG/ML 10 ML VIAL ONE; +Lactated Ringers 1000 ml BAG 1,000 ML IV SCH; -Lidocaine 2% PF * 5 ML VIAL ONE; -Lidocaine 2% VISCOUS* 15 ML UDC ONE; -Lidocaine 4% TOPICAL* 50 ML TOP.SOLN ONE; +Metoclopramide 5 MG/ML VIAL (10 mg) IV PRN; -Midazolam* 1 MG/ML 5 ML VIAL (5 MG) ONE; +Naloxone 0.4 mg VIAL 0.4 mg/ml 1 ml VIAL IV PRN; +Ondansetron 4 mg VIAL 2 MG/ML 2 ml VIAL IV PRN; -Ondansetron INJ* 2 MG/ML VIAL ONE; -Propofol* 10 MG/ML 20 ML BTL IV PUSH ONE; +fentaNYL 100 mcg/2 ml 50 MCG/ML VIAL IV PRN; -fentaNYL* 50 MCG/ML 2 ML VIAL (100 MCG VIAL) ONE
[2022-01-10] MEDS ORDERED: Ropivacaine 5 MG/ML 20 ML VIAL 0.5% (100 MG) ONE (07:09)
[2022-01-10] MEDS ORDERED: Propofol 10 MG/ML 20 ML BTL ONE ×3 (07:23→11:07)
[2022-01-10] MEDS ORDERED: Lidocaine 2% PF 5 ML VIAL ONE (07:23)
[2022-01-10] MEDS ORDERED: Clindamycin 900 MG/D5W BAG 900 MG/50 ML BAG IVPB ONE (07:50)
[2022-01-10] MEDS ORDERED: fentaNYL 100 mcg/2 ml 50 MCG/ML VIAL ONE (08:35)
[2022-01-10] MEDS ORDERED: ROPIVACAINE 5 MG/ML 30 ML BTL (0.5%) ONE (08:35)
[2022-01-10] MEDS ORDERED: Dexamethasone IV 4 MG/ML VIAL 1 ml VIAL ONE (08:35)
[2022-01-10] MEDS ORDERED: Midazolam 2 mg/2 ml VIAL 1 mg/ml 2 ml VIAL (2 mg) ONE (09:06)
[2022-01-10] MEDS ORDERED: Phenylephrine 40 mcg/mL 10mL (400mcg) SYRINGE ONE (09:15)
[2022-01-10] MEDS ORDERED: Ketamine HCL 50 mg/ml 10 ml VIAL (500 MG) ONE (09:19)
[2022-01-10] MEDS ORDERED: Phenylephrine IV 10 MG/ML 1 ml VIAL ONE (09:26)
[2022-01-10] MEDS ORDERED: Ondansetron 4 mg VIAL 2 MG/ML 2 ml VIAL ONE (10:13)
[2022-01-10] MEDS ORDERED: Ondansetron ODT 4 mg TAB 4 MG TAB PO PRN (10:17)
[2022-01-10] MEDS ORDERED: Lactulose 30 ml UDC PO PRN (10:17)
[2022-01-10] MEDS ORDERED: Ondansetron 4 mg VIAL 2 MG/ML 2 ml VIAL IV PRN (10:17)
[2022-01-10] MEDS ORDERED: Magnesium Hydroxide LIQ 30 ML UDC PO PRN (10:17)
[2022-01-10] MEDS: Lactated Ringers 1000 ml BAG 1,000 ML IV SCH (13:59)
[2022-01-10] MEDS: Morphine 2 MG/ML SYRINGE IV PRN ×2 (15:45→19:49)
[2022-01-10] MEDS ORDERED: Albuterol HFA INHALER 8 gm MDI INH PRN (16:20)
[2022-01-10] MEDS: Clindamycin 600 MG/D5W BAG 600 MG/50 ML BAG IV SCH (17:51)
[2022-01-10] MEDS ORDERED: PREGABALIN 150 MG PO SCH (21:00)
[2022-01-10] MEDS ORDERED: Cholecalciferol (VIT D3) 1,000 unit TAB PO SCH (21:00)
[2022-01-10] MEDS: Mometasone/Formoter 200/5 MDI INH SCH (21:20)
[2022-01-10] MEDS: Magnesium Hydroxide LIQ 30 ML UDC PO SCH (21:37)
[2022-01-10] MEDS: NFT: ICOSAPENT ETHYL 1 GM CAPSULE (NF) PO SCH (22:41)
[2022-01-11] MEDS: Clindamycin 600 MG/D5W BAG 600 MG/50 ML BAG IV SCH ×2 (01:48→07:38)
[2022-01-11] MEDS: Morphine 2 MG/ML SYRINGE IV PRN (02:02)
[2022-01-11 06:09] LABS: Hematocrit 33 % (42-52); Hemoglobin 10.8 g/dL (14.0-18.0); Mean Platelet Volume 7.1 fL (7.4-10.4); Platelet Count 248 10^3/uL (150-450)
[2022-01-11] MEDS: Lactated Ringers 1000 ml BAG 1,000 ML IV SCH (06:12)
[2022-01-11 06:40] LABS: Calcium 8.2 mg/dL (8.6-10.3)
[2022-01-11] MEDS ORDERED: Morphine ER 15 mg TAB ** extended release PO SCH (08:00)
[2022-01-11] MEDS: Mometasone/Formoter 200/5 MDI INH SCH (08:02)
[2022-01-11] MEDS: Magnesium Hydroxide LIQ 30 ML UDC PO SCH (08:08)
[2022-01-11] MEDS: NFT: ICOSAPENT ETHYL 1 GM CAPSULE (NF) PO SCH (08:08)
[2022-01-11] MEDS ORDERED: DULoxetine DR 60 mg CAP PO SCH (09:00)
[2022-01-11] MEDS ORDERED: Vitamin THERAPEUTIC TAB PO SCH (09:00)
[2022-01-11] MEDS ORDERED: DULoxetine DR 30 mg CAP PO SCH (09:00)
[2022-01-11] MEDS ORDERED: Aspirin EC 81 mg TAB.EC (enteric coated) PO SCH (09:00)
[2022-01-11 11:56] VITALS: BP 144/73
== END 2022-01-11 14:30 | disposition home or self-care (01) ==
LOC: OR 06:59 → SSU 06:59 → EDSTATUS 09:15
PROVIDERS: ADMIT Orthopaedic Surgery Adult Reconstructive Orthopaedic Surgery; ATTEND Orthopaedic Surgery Adult Reconstructive Orthopaedic Surgery

== ENCOUNTER 2022-04-13 06:50 | Observation (INO) ==
[~2022-04-13 06:50] MED LIST changes: -HYDROcodone/ACETAMIN 5/325 mg TAB PO PRN; +Levalbuterol 1.25MG/0.5ML NEB.SOL INH ONE; -Metoclopramide 5 MG/ML VIAL (10 mg) IV PRN
[2022-04-13] MEDS ORDERED: Levalbuterol 1.25MG/0.5ML NEB.SOL ONE (07:29)
[2022-04-13] MEDS ORDERED: Clindamycin 900 MG/D5W BAG 900 MG/50 ML BAG IVPB ONE (07:29)
[2022-04-13] MEDS ORDERED: Midazolam 2 mg/2 ml VIAL 1 mg/ml 2 ml VIAL (2 mg) ONE (07:32)
[2022-04-13] MEDS ORDERED: Dexamethasone IV 4 MG/ML VIAL 1 ml VIAL ONE ×2 (07:32→07:45)
[2022-04-13] MEDS ORDERED: Lidocaine 2% PF 5 ML VIAL ONE ×2 (07:33→11:28)
[2022-04-13] MEDS ORDERED: Bupivacaine 0.5% SDV PF 30ML VIAL ONE (07:33)
[2022-04-13] MEDS ORDERED: Ondansetron 4 mg VIAL 2 MG/ML 2 ml VIAL ONE (07:45)
[2022-04-13] MEDS ORDERED: ROPIVACAINE 5 MG/ML 30 ML BTL (0.5%) ONE (09:13)
[2022-04-13] MEDS ORDERED: Phenylephrine IV 10 MG/ML 1 ml VIAL ONE (09:20)
[2022-04-13] MEDS ORDERED: fentaNYL 100 mcg/2 ml 50 MCG/ML VIAL ONE ×2 (09:34→13:10)
[2022-04-13] MEDS ORDERED: Phenylephrine 40 mcg/mL 10mL (400mcg) SYRINGE ONE (09:38)
[2022-04-13] MEDS ORDERED: Magnesium Hydroxide LIQ 30 ML UDC PO PRN (10:26)
[2022-04-13] MEDS ORDERED: Ondansetron ODT 4 mg TAB 4 MG TAB PO PRN (10:26)
[2022-04-13] MEDS ORDERED: Ondansetron 4 mg VIAL 2 MG/ML 2 ml VIAL IV PRN (10:26)
[2022-04-13] MEDS ORDERED: Lactulose 30 ml UDC PO PRN (10:26)
[2022-04-13] MEDS ORDERED: Lactated Ringers 1000 ml BAG 1,000 ML IV SCH (11:00)
[2022-04-13] MEDS ORDERED: Propofol 10 MG/ML 20 ML BTL ONE (11:54)
[2022-04-13] MEDS ORDERED: CYCLOSPORINE 0.05% BOTH EYES SCH (14:15)
[2022-04-13] MEDS ORDERED: Senna TAB 8.6 mg TAB PO PRN (14:16)
[2022-04-13] MEDS ORDERED: Albuterol HFA INHALER 8 gm MDI INH PRN (14:59)
[2022-04-13] MEDS ORDERED: Albuterol 2.5mg/3 ml (0.083%) NEB.SOLN INH PRN (15:02)
[2022-04-13] MEDS: Morphine 2 MG/ML SYRINGE IV PRN ×3 (15:03→23:51)
[2022-04-13] MEDS ORDERED: INSULIN PUMP CONTROLLER SCH (18:00)
[2022-04-13] MEDS: Clindamycin 600 MG/D5W BAG 600 MG/50 ML BAG IV SCH (18:06)
[2022-04-13] MEDS ORDERED: Insulin LISPRO FOR INSULIN PUMP SUBCUT SCH (19:00)
[2022-04-13] MEDS: CMC: Cyclosporine 0.05% OPHTH (NF) 0.4 ML VIAL BOTH EYES SCH (20:35)
[2022-04-13] MEDS: FLUTICASONE 50 MCG INTRANASAL SCH (20:36)
[2022-04-13] MEDS: NF: ICOSAPENT ETHYL 1 GM CAPSULE (NF) PO SCH (20:40)
[2022-04-13] MEDS: Magnesium Hydroxide LIQ 30 ML UDC PO SCH (20:40)
[2022-04-13] MEDS ORDERED: Cholecalciferol (VIT D3) 1,000 unit TAB PO SCH (21:00)
[2022-04-13] MEDS: Mometasone/Formoter 200/5 MDI INH SCH (21:26)
[2022-04-14] MEDS: Clindamycin 600 MG/D5W BAG 600 MG/50 ML BAG IV SCH ×2 (03:31→09:56)
[2022-04-14 06:08] LABS: Hematocrit 30 % (42-52); Hemoglobin 9.9 g/dL (14.0-18.0); Mean Platelet Volume 6.7 fL (7.4-10.4); Platelet Count 302 10^3/uL (150-450)
[2022-04-14 06:45] LABS: Calcium 8.7 mg/dL (8.6-10.3); eGFR CKD-EPI 94.2 (>60)
[2022-04-14] MEDS: Mometasone/Formoter 200/5 MDI INH SCH (08:47)
[2022-04-14] MEDS: CMC: Cyclosporine 0.05% OPHTH (NF) 0.4 ML VIAL BOTH EYES SCH (08:54)
[2022-04-14] MEDS: FLUTICASONE 50 MCG INTRANASAL SCH (08:54)
[2022-04-14] MEDS: Magnesium Hydroxide LIQ 30 ML UDC PO SCH (08:54)
[2022-04-14] MEDS: NF: ICOSAPENT ETHYL 1 GM CAPSULE (NF) PO SCH (08:57)
[2022-04-14] MEDS ORDERED: DULoxetine DR 30 mg CAP PO SCH (09:00)
[2022-04-14] MEDS ORDERED: PRUCALOPRIDE 2 MG PO SCH (09:00)
[2022-04-14] MEDS ORDERED: Vitamin THERAPEUTIC TAB PO SCH (09:00)
[2022-04-14] MEDS ORDERED: PTO: SPIRIVA Respimat (tiotropium) 2.5 mcg/inh Inhaler INH SCH (09:00)
[2022-04-14] MEDS ORDERED: DULoxetine DR 60 mg CAP PO SCH (09:00)
[2022-04-14 11:01] VITALS: BP 137/62
== END 2022-04-14 13:20 | disposition home or self-care (01) ==
LOC: OR 06:50 → SSU 06:50
PROVIDERS: ADMIT Orthopaedic Surgery Adult Reconstructive Orthopaedic Surgery; ATTEND Orthopaedic Surgery Adult Reconstructive Orthopaedic Surgery

== ENCOUNTER 2022-11-08 13:14 | Inpatient (IN) ==
[2022-11-08 14:05] LABS: INR 0.95 (0.88-1.18)
[2022-11-08 14:15] LABS: ABS Basophils 0.1 10^3/uL (0.0-0.1); ABS Eosinophils 0.1 10^3/uL (0.0-0.5); ABS Monocytes 0.5 10^3/uL (0.0-1.1); ABS Neutrophils 9.3 10^3/uL (1.5-7.6); Eosinophil % 0.5 %; Hematocrit 36.8 % (38-53); Hemoglobin 11.9 g/dL (13.2-16.3); Lymphocyte % 8.9 %; Mean Corpuscular Hemoglobin 23.8 pg (27-33); Mean Corpuscular Hgb Conc 32.3 g/dL (31-36); Mean Corpuscular Volume 73.5 fL (80-97); Mean Platelet Volume 7.3 fL (7.5-11.2); Platelet Count 320 10^3/uL (150-450); Red Cell Distribution Width 18.3 % (12-17); White Blood Count 10.9 10^3/uL (3.6-10.2)
[2022-11-08 14:19] LABS: Albumin 4.1 g/dL (3.2-5.2); Albumin/Globulin Ratio 1.5 (1-3); Calcium 9.3 mg/dL (8.6-10.3); Creatinine, Serum 0.94 mg/dL (0.67-1.17); Globulin 2.7 g/dL (2-4); Potassium 4.3 mmol/L (3.5-5.0); Total Bilirubin 0.5 mg/dL (0.2-1.0); Total Protein 6.8 g/dL (6.4-8.9); eGFR CKD-EPI 86.7 (>60)
[2022-11-08] MEDS ORDERED: Heparin DRIP 25,000 UNITS BAG 25,000 UNITS/500 ML BAG IV SCH (14:45)
[2022-11-08] MEDS ORDERED: Morphine 4 MG/ML VIAL (1 ml) IV ONE (14:58)
[2022-11-08 15:39] LABS: High Sensitivity Troponin 1 Hr 6965 pg/mL (<20)
[2022-11-08] MEDS: Heparin 5000 UNITS/ML 1 mL VIAL IV SCH ×2 (16:09→22:45)
[2022-11-08] MEDS ORDERED: Morphine 2 MG/ML SYRINGE IV PRN (17:34)
[2022-11-08] MEDS ORDERED: nitroGLYCERIN DRIP 25,000 MCG/250 ML BTL IV SCH (18:00)
[2022-11-08] MEDS ORDERED: Acetaminophen IV 1 GM/100ML 1,000 MG/100 ML BAG IV PRN (18:04)
[2022-11-08] MEDS ORDERED: Albuterol 2.5mg/3 ml (0.083%) NEB.SOLN INH PRN (18:04)
[2022-11-08] MEDS: Mometasone/Formoter 200/5 MDI INH SCH (20:35)
[2022-11-08] MEDS ORDERED: ICOSAPENT ETHYL 1 GM CAPSULE (NF) PO SCH (21:00)
[2022-11-08] MEDS: NF:ICOSAPENT ETHYL 1 GM CAPSULE (NF) PO SCH (21:13)
[2022-11-09 04:32] LABS: Hematocrit 30.5 % (38-53); Mean Corpuscular Hemoglobin 24.1 pg (27-33); Mean Corpuscular Hgb Conc 32.9 g/dL (31-36); Mean Corpuscular Volume 73.2 fL (80-97); Mean Platelet Volume 7.3 fL (7.5-11.2); Platelet Count 268 10^3/uL (150-450); Red Blood Count 4.17 10^6/uL (4.06-5.63); Red Cell Distribution Width 17.7 % (12-17); White Blood Count 7.6 10^3/uL (3.6-10.2)
[2022-11-09 04:42] LABS: Calcium 8.4 mg/dL (8.6-10.3); Creatinine, Serum 0.91 mg/dL (0.67-1.17); Potassium 3.5 mmol/L (3.5-5.0); eGFR CKD-EPI 90.1 (>60)
[2022-11-09] MEDS: Mometasone/Formoter 200/5 MDI INH SCH ×2 (07:23→19:16)
[2022-11-09] MEDS: DULoxetine DR 30 mg CAP PO SCH (08:04)
[2022-11-09] MEDS: DULoxetine DR 60 mg CAP PO SCH (08:04)
[2022-11-09] MEDS: Aspirin EC 81 mg TAB.EC (enteric coated) PO SCH (08:04)
[2022-11-09] MEDS: NF:ICOSAPENT ETHYL 1 GM CAPSULE (NF) PO SCH ×2 (08:04→20:19)
[2022-11-09] MEDS ORDERED: Potassium EFFERVES 25 meq TAB PO ONE (09:03)
[2022-11-09] MEDS ORDERED: fentaNYL 100 mcg/2 ml 50 MCG/ML VIAL IV SLOW PU ONE (09:52)
[2022-11-09] MEDS ORDERED: Midazolam 10 mg/10 ml VIAL 1 mg/ml 10 ml VIAL (10 mg) IV SLOW PU ONE (09:52)
[2022-11-09] MEDS ORDERED: Naloxone 0.4 mg VIAL 0.4 mg/ml 1 ml VIAL IV PUSH PRN (09:52)
[2022-11-09] MEDS ORDERED: Flumazenil 0.5 mg/5 ml 0.1 MG/ML 5 ml VIAL IV PRN (09:52)
[2022-11-09] MEDS ORDERED: fentaNYL 100 mcg/2 ml 50 MCG/ML VIAL ONE ×3 (10:29→12:36)
[2022-11-09] MEDS ORDERED: Heparin 2 UNITS/ML 1000 mls 2,000 ML IV ONE (10:29)
[2022-11-09] MEDS ORDERED: Heparin 1,000 UNIT/ML 10 ml (10,000 UNITS) CATHLAB/DIALYSIS ONE ×2 (10:29→12:00)
[2022-11-09] MEDS ORDERED: Midazolam 5 mg/5 ml VIAL 1 mg/ml 5 ml VIAL (5 mg) ONE (10:29)
[2022-11-09] MEDS ORDERED: Iohexol 350 (CONTRAST) 100 ML PAK IV ONE (10:30)
[2022-11-09] MEDS ORDERED: Lidocaine 1% MPF 5 ML VIAL ONE (10:30)
[2022-11-09] MEDS ORDERED: Iohexol 350 (CONTRAST) 200 ML MDV IV ONE (10:30)
[2022-11-09] MEDS ORDERED: nitroGLYCERIN DRIP 25,000 MCG/250 ML BTL ONE (10:30)
[2022-11-09] MEDS ORDERED: Heparin 2 UNITS/ML 1000 mls 1,000 ML IV ONE ×2 (10:30→10:53)
[2022-11-09] MEDS ORDERED: Atropine 0.1 MG/ML 10 ml SYR (1 mg) ONE (11:45)
[2022-11-09] MEDS ORDERED: Ondansetron 4 mg VIAL 2 MG/ML 2 ml VIAL IV PRN (12:58)
[2022-11-09 16:34] LABS: POC SO2 92 %
[2022-11-10 04:54] LABS: ABS Eosinophils 0.3 10^3/uL (0.0-0.5); ABS Lymphocytes 1.5 10^3/uL (1.0-4.8); ABS Monocytes 0.6 10^3/uL (0.0-1.1); ABS Neutrophils 3.2 10^3/uL (1.5-7.6); ABS Nucleated RBC 0.01 10^3/ul; Eosinophil % 4.8 %; Hematocrit 32.1 % (38-53); Hemoglobin 10.7 g/dL (13.2-16.3); Mean Corpuscular Hgb Conc 33.2 g/dL (31-36); Mean Corpuscular Volume 72.2 fL (80-97); Mean Platelet Volume 7.2 fL (7.5-11.2); Nucleated Red Blood Cells % 0.1 /100 WBC (0.0-0.4); Platelet Count 243 10^3/uL (150-450); Red Blood Count 4.44 10^6/uL (4.06-5.63); Red Cell Distribution Width 17.8 % (12-17); White Blood Count 5.7 10^3/uL (3.6-10.2)
[2022-11-10 05:09] LABS: Calcium 8.5 mg/dL (8.6-10.3); Creatinine, Serum 0.89 mg/dL (0.67-1.17); Potassium 4.1 mmol/L (3.5-5.0); eGFR CKD-EPI 91.6 (>60)
[2022-11-10] MEDS: DULoxetine DR 30 mg CAP PO SCH (08:40)
[2022-11-10] MEDS: Aspirin EC 81 mg TAB.EC (enteric coated) PO SCH (08:40)
[2022-11-10] MEDS: DULoxetine DR 60 mg CAP PO SCH (08:41)
[2022-11-10] MEDS: Mometasone/Formoter 200/5 MDI INH SCH (09:04)
[2022-11-10] MEDS: NF:ICOSAPENT ETHYL 1 GM CAPSULE (NF) PO SCH (09:50)
[2022-11-10 13:04] VITALS: BP 122/65
[2022-11-13 07:40] LABS: POC SO2 59 %
== END 2022-11-10 12:42 | disposition home or self-care (01) | DRG 247 ==
LOC: ED 13:14 → EDHOLD 14:21 → ICU 16:31
PROVIDERS: ADMIT Student in an Organized Health Care Education/Training Program; ATTEND Student in an Organized Health Care Education/Training Program

== ENCOUNTER 2023-01-01 12:09 | Observation (INO) ==
[2023-01-01 12:45] LABS: INR 0.98 (0.83-1.13)
[2023-01-01 12:50] LABS: ABS Basophils 0.1 10^3/uL (0.0-0.1); ABS Eosinophils 0.3 10^3/uL (0.0-0.5); ABS Lymphocytes 1.6 10^3/uL (1.0-4.8); ABS Monocytes 0.9 10^3/uL (0.0-1.1); ABS Neutrophils 4.3 10^3/uL (1.5-7.6); ABS Nucleated RBC 0.01 10^3/ul; Eosinophil % 4.1 %; Hematocrit 35.1 % (38-53); Hemoglobin 11.4 g/dL (13.2-16.3); Lymphocyte % 22.3 %; Mean Corpuscular Hemoglobin 23.5 pg (27-33); Mean Corpuscular Hgb Conc 32.4 g/dL (31-36); Mean Corpuscular Volume 72.5 fL (80-97); Mean Platelet Volume 7.3 fL (7.5-11.2); Nucleated Red Blood Cells % 0.2 /100 WBC (0.0-0.4); Platelet Count 296 10^3/uL (150-450); Red Blood Count 4.84 10^6/uL (4.06-5.63); Red Cell Distribution Width 18.3 % (12-17); White Blood Count 7.2 10^3/uL (3.6-10.2)
[2023-01-01 12:52] LABS: Albumin 4.1 g/dL (3.2-5.2); Calcium 8.9 mg/dL (8.6-10.3); Potassium 3.9 mmol/L (3.5-5.0); Total Bilirubin 0.7 mg/dL (0.2-1.0)
[2023-01-01 12:58] LABS: Albumin/Globulin Ratio 1.3 (1-3); Creatinine, Serum 0.92 mg/dL (0.67-1.17); Globulin 3.1 g/dL (2-4); Total Protein 7.2 g/dL (6.4-8.9); eGFR CKD-EPI 88.9 (>60)
[2023-01-01 14:13] LABS: High Sensitivity Troponin 1 Hr 99 pg/mL (<20)
[2023-01-01] MEDS: Enoxaparin 40 MG/0.4 ML SYR SUBCUT SCH (18:15)
[2023-01-01] MEDS ORDERED: PREGABALIN 200 MG PO SCH (21:00)
[2023-01-02] MEDS: ICOSAPENT ETHYL 1 GM PO SCH ×3 (01:07→21:36)
[2023-01-02 06:58] LABS: Hematocrit 31.1 % (38-53); Hemoglobin 10.3 g/dL (13.2-16.3); Mean Corpuscular Hemoglobin 23.8 pg (27-33); Mean Corpuscular Hgb Conc 33.1 g/dL (31-36); Mean Corpuscular Volume 71.8 fL (80-97); Mean Platelet Volume 7.5 fL (7.5-11.2); Platelet Count 241 10^3/uL (150-450); Red Blood Count 4.33 10^6/uL (4.06-5.63); Red Cell Distribution Width 18.4 % (12-17); White Blood Count 5.4 10^3/uL (3.6-10.2)
[2023-01-02 07:14] LABS: Calcium 8.5 mg/dL (8.6-10.3); Creatinine, Serum 0.98 mg/dL (0.67-1.17); Magnesium 1.9 mg/dL (1.9-2.7); Potassium 3.9 mmol/L (3.5-5.0); eGFR CKD-EPI 82.4 (>60)
[2023-01-02] MEDS ORDERED: Regadenoson 0.4 MG/5 ML SYRINGE ONE (10:51)
[2023-01-02] MEDS ORDERED: Aminophylline 25 MG/ML VIAL ONE (10:51)
[2023-01-02] MEDS ORDERED: NS 0.9% 1000 ml BAG 1,000 ML IV SCH ×2 (12:45→16:15)
[2023-01-02] MEDS: DULoxetine DR 60 mg CAP PO SCH (12:50)
[2023-01-02] MEDS: Aspirin EC 81 mg TAB.EC (enteric coated) PO SCH ×2 (12:50→14:01)
[2023-01-02] MEDS: DULoxetine DR 30 mg CAP PO SCH (12:50)
[2023-01-02 13:40] LABS: ABS Eosinophils 0.3 10^3/uL (0.0-0.5); ABS Lymphocytes 1.4 10^3/uL (1.0-4.8); ABS Monocytes 0.6 10^3/uL (0.0-1.1); ABS Neutrophils 2.7 10^3/uL (1.5-7.6); Eosinophil % 5.7 %; Hematocrit 34.4 % (38-53); Hemoglobin 11.3 g/dL (13.2-16.3); Lymphocyte % 27.8 %; Mean Corpuscular Hemoglobin 23.5 pg (27-33); Mean Corpuscular Hgb Conc 32.8 g/dL (31-36); Mean Corpuscular Volume 71.7 fL (80-97); Mean Platelet Volume 7.3 fL (7.5-11.2); Nucleated Red Blood Cells % 0.1 /100 WBC (0.0-0.4); Platelet Count 284 10^3/uL (150-450); Red Cell Distribution Width 18.2 % (12-17)
[2023-01-02 13:43] LABS: Activated Partial Thrombo Time 32.3 seconds (26.0-38.0); INR 0.96 (0.83-1.13)
[2023-01-02] MEDS ORDERED: Sulfur Hexaflouride MICROSPHR 25 MG VIAL ONE (13:46)
[2023-01-02 13:53] LABS: Calcium 9.1 mg/dL (8.6-10.3); Creatinine, Serum 0.84 mg/dL (0.67-1.17); Potassium 3.8 mmol/L (3.5-5.0); eGFR CKD-EPI 93.2 (>60)
[2023-01-02] MEDS ORDERED: fentaNYL 100 mcg/2 ml 50 MCG/ML VIAL ONE (13:59)
[2023-01-02] MEDS ORDERED: Midazolam 5 mg/5 ml VIAL 1 mg/ml 5 ml VIAL (5 mg) ONE (13:59)
[2023-01-02] MEDS ORDERED: VERAPAMIL 2.5 MG/ML 2 ML VIAL ** 5 mg/2 ml ONE (13:59)
[2023-01-02] MEDS ORDERED: Heparin 1,000 UNIT/ML 10 ml (10,000 UNITS) CATHLAB/DIALYSIS ONE (13:59)
[2023-01-02] MEDS ORDERED: Iohexol 350 (CONTRAST) 100 ML PAK IV ONE (14:00)
[2023-01-02] MEDS ORDERED: Lidocaine 1% MPF 5 ML VIAL ONE (14:00)
[2023-01-02] MEDS ORDERED: Iohexol 350 (CONTRAST) 200 ML MDV IV ONE (14:00)
[2023-01-02] MEDS ORDERED: Heparin 2 UNITS/ML 1000 mls 2,000 ML IV ONE (14:00)
[2023-01-02] MEDS: Enoxaparin 40 MG/0.4 ML SYR SUBCUT SCH (21:34)
[2023-01-03 06:03] LABS: Hematocrit 33.8 % (38-53); Hemoglobin 11.1 g/dL (13.2-16.3); Mean Corpuscular Hemoglobin 23.6 pg (27-33); Mean Corpuscular Hgb Conc 32.9 g/dL (31-36); Mean Corpuscular Volume 71.8 fL (80-97); Mean Platelet Volume 7.1 fL (7.5-11.2); Platelet Count 268 10^3/uL (150-450); Red Cell Distribution Width 18.6 % (12-17); White Blood Count 6.8 10^3/uL (3.6-10.2)
[2023-01-03 06:41] LABS: Creatinine, Serum 0.79 mg/dL (0.67-1.17); Potassium 4.2 mmol/L (3.5-5.0)
[2023-01-03] MEDS: DULoxetine DR 30 mg CAP PO SCH (08:58)
[2023-01-03] MEDS: DULoxetine DR 60 mg CAP PO SCH (08:59)
[2023-01-03] MEDS: Aspirin EC 81 mg TAB.EC (enteric coated) PO SCH (09:01)
[2023-01-03] MEDS: ICOSAPENT ETHYL 1 GM PO SCH ×2 (11:06→20:43)
[2023-01-03] MEDS: Enoxaparin 40 MG/0.4 ML SYR SUBCUT SCH (17:04)
[2023-01-04 06:02] VITALS: BP 127/67
[2023-01-04 06:55] LABS: Calcium 8.4 mg/dL (8.6-10.3); Creatinine, Serum 0.81 mg/dL (0.67-1.17); Magnesium 1.9 mg/dL (1.9-2.7); Potassium 3.7 mmol/L (3.5-5.0); eGFR CKD-EPI 94.3 (>60)
[2023-01-04] MEDS: DULoxetine DR 60 mg CAP PO SCH (07:46)
[2023-01-04] MEDS: Aspirin EC 81 mg TAB.EC (enteric coated) PO SCH (07:47)
[2023-01-04] MEDS: DULoxetine DR 30 mg CAP PO SCH (07:47)
[2023-01-04] MEDS: ICOSAPENT ETHYL 1 GM PO SCH (07:49)
== END 2023-01-04 08:45 | disposition short-term general hospital (02) ==
LOC: ED 12:09 → EDHOLD 12:09 → SUATTDRO 14:54 → MEDTELE 23:34
PROVIDERS: ADMIT Hospitalist; ATTEND Hospitalist